=== PATIENT | male | born 1965 | race Caucasian/White ===

== ENCOUNTER 2024-07-26 03:52 | Emergency (ER) | payer BC, OTHER ==
[~2024-07-26] VITALS: Ht 182.9 cm; Wt 109.2 kg
[2024-07-26] MEDS ORDERED: ACET500T58 PO (04:19)
--- NOTE | 2024-07-26 04:21 | ED.PDOC ---
History of Present Illness HPI Comments 59 year old male presents to ER with complaints of flu-like symptoms x 2 days. Patient states he has been experiencing intermittent body aches, frontal sinus pain and on/off frontal headache x 2 days. He rates his current pain a 4/10. States he has been taking OTC Advil for his symptoms with slight relief and presents to ER ambulatory on arrival, alert and oriented x4, with steady gait, in no distress. Denies fever, cough, sore throat, congestion, runny nose, dizziness, n/v, numbness/tingling, sob, chest pain, abdominal pain, changes in urination/bm or any further symptoms/complaints Chief Complaint: Flu like Time Seen by MD: 04:02 Primary Care Provider: UNKNOWN Reviewed Notes: Nurses Notes, Medications, Allergies Information Source: Patient Past Medical History PAST MEDICAL HISTORY: Depression Surgical History: Denies all surgeries Family History Family History: Unknown Social History Smoker: Non-Smoker Alcohol: Occasionally Drugs: Marijuana Lives In: Home Constitutional: See HPI EENTM: See HPI Respiratory: No Symptoms Reported Cardiovascular: No Symptoms Reported Gastrointestinal: No Symptoms Reported Genitourinary: No Symptoms Reported Neurological: See HPI Musculoskeletal: No Symptoms Reported Integumentary: No Symptoms Reported Allergic/Immunocompromised: others (denies) Hematologic/Lymphatic: No Symptoms Reported Endocrine: No Symptoms Reported Psychiatric: No symptoms Reported Physical Exam General Appearance: No Apparent Distress, Obese HEENT: Normal ENT Inspection, PERRL/EOMI, Pharynx Normal, TMs Normal Neck: Full Range of Motion, Non-Tender, Normal Respiratory: Chest Non-Tender, Lungs Clear, No Accessory Muscle Use, No Respiratory Distress, Normal Breath Sounds Cardiovascular: No Murmur, No Gallop, Regular Rate/Rhythm Breast Exam: Deferred Gastrointestinal: Non Tender, No Pulsatile Mass, Soft Genitalia: Deferred Pelvic: Deferred Rectal: Deferred Extremities: Normal capillary refill, Normal range of motion Neurologic: Alert, peoplesoft fscm developer II-XII nml as Tested, No Motor Deficits, Normal Affect, Normal Mood, No Sensory Deficits Cerebellar Function: Normal Reflexes: Normal Skin: Dry, Normal Color, Warm Lymphatic: No Adenopathy Was a procedure done? Was a procedure done?: No Sedation Sedation?: No Fever Differential Dx Differential Diagnosis: Pneumonia, Other (influenza, covid-19) X-Ray, Labs, Meds, VS Vital Signs Date Time Temp Pulse Resp B/P (MAP) Pulse Ox O2 Delivery O2 Flow Rate FiO2 07/26/24 04:07 97.5 95 18 120/79 (93) 96 Lab Test 07/26/24 04:10 Range/Units Influenza Type A Antigen Negative Negative Influenza Type B Antigen Negative Negative SARS-CoV-2 Antigen (Rapid) Negative NEGATIVE Influenza A & B reviewed - negative Florecita reviewed - negative Patient in no distress during ER visit/prior to discharge Cannabis cessation discussed and advised Advised to drink plenty of fluids Advised to f/u with PCP in 1-2 days Patient verbalized understanding and agreeable with current plan of care Advised to return to ER immediately if symptoms worsen Time of 1ST Reevaluation: 03:44 Reevaluation 1ST: N/A Patient Education/Counseling: Diagnosis, Treatment, Prognosis, Need For Follow Up Family Education/Counseling: No Family Present Departure 1 Departure Time of Disposition: 04:12 Impression: Primary Impression: Acute viral sinusitis Disposition: 01 HOME / SELF CARE / HOMELESS Condition: Stable e-Prescriptions Acetaminophen (Acetaminophen) 500 Mg Tab 500 MG PO Q4HPRN, #30 TAB 0 Refills Prov: JESUS MANUEL FERRER 07/26/24 Discharged With: Self Critical Care Note Critical Care Time?: No Stability Stability form required: No Heart Score Heart Score: Heart Score Response (Comments) Value History N/A 0 EKG N/A 0 Age N/A 0 Risk Factors N/A 0 Troponin N/A 0 Total 0 JESUS MANUEL FERRER Jul 26, 2024 04:21
[2024-07-26 05:25] LABS: COVID19 ANTIGEN SOFIA FIA NEGATIVE (NEGATIVE); Rapid Influenza A Negative (Negative); Rapid Influenza B Negative (Negative)
[2024-07-26 05:38] VITALS: BP 140/75; PULSE 88; RESP 18; TEMP 98.5; O2SAT 98
== END 2024-07-26 05:52 | disposition home or self-care (01) ==
LOC: ER 03:52
DX: J01.90 Acute sinusitis, unspecified (principal); B97.89 Other viral agents as the cause of diseases classified elsewhere; F32.9 Major depressive disorder, single episode, unspecified; F15.90 Other stimulant use, unspecified, uncomplicated; Z20.822 Contact with and (suspected) exposure to COVID-19
CPT/HCPCS: 36415; 87426; 87804

== ENCOUNTER 2024-07-26 11:36 | Inpatient (IN) | payer BC ==
[~2024-07-26] VITALS: Ht 182.9 cm; Wt 108.3 kg
[~2024-07-26 11:36] MED LIST: ACET500T58 PO
--- NOTE | 2024-07-26 12:06 | ECG ---
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
--- NOTE | 2024-07-26 12:10 | ED.PDOC ---
History of Present Illness HPI Comments HPI: Poor Historian. 59 y.o male presents to the emergency department for evaluation of multiple vague symptoms. Symptoms started two days ago intermittent in nature. States having a fever and has been taking ibuprofen. He states having sinus and some nonspecific minimal headache. He states having nausea but no vomiting. He states having generalized weakness. He is not sure if he is having abdominal pain or not. He is also not sure if his urine is burning or not but he says I feel my urine but he specifically says it does not hurt or burn. Patient was seen and evaluated here last night and serology tests were done for COVID and influenza which were negative. Wellbutrin and Celexa for depression Vital signs: BP: 127/78 HR: 100 Temp: 97.5 F SPO2: 96% RA RR: 18 Patient denies any allergies Past medical history: depression and hyperlipidemia Past surgical history: unknown REVIEW OF SYSTEMS: CONSTITUTIONAL: Denies acute: fever, HEAD: Denies acute: photophobia Eyes: Denies acute: Double vision, vision loss, eye pain, eye discharge. EARS: Denies acute: tinnitus, hearing loss, ear discharge, ear pain, THROAT: Denies acute: sore throat, swelling, difficulty swallowing , pain with swallowing, change in voice. NECK: Denies acute: neck pain, neck swelling, stiff neck. HEART: Denies acute : chest pain, palpitations, LUNGS: Denies acute: SOB, wheezing, cough, hemoptysis ABDOMEN: Denies acute: Vomiting, diarrhea, melena , hematemesis, hematochezia SKIN: Denies acute: rash, redness, lesions, itchiness. EXTREMITIES: Denies acute: calf pain, numbness, tingling, weakness, denies pain in extremity. Denies acute: Low back pain. Neuro: Denies acute: focal neurological deficit, motor or sensory focal neurological deficit, tremors, seizure like activity, confusion, dizziness, change in mental status, loss of bowel or bladder function, cauda equina like symptoms. : Denies acute: hematuria, flank pain, increase in urinary frequency. PSYCH: Denies acute: hallucination, suicidal ideation, homicidal ideation. PHYSICAL EXAM: General: no acute distress, awake and alert. Head: normocephalic, atraumatic. Neck: supple, trachea is midline, no swelling. Throat: Normal phonation. Eyes:, no erythema, no purulent discharge, no proptosis, no icterus. Heart: regular tachycardic, no significant murmur appreciated. Lungs: no apparent respiratory distress, Able to speak in full sentences. No wheezing, no rhonchi, no crackles. No stridors Clear to auscultation bilaterally. Abdomen: non tender to palpation, non distended, soft, no guarding, no rebound, + bowel sounds. Neuro: Awake, Alert, oriented to name, self, situation, follows commands GCS=15. Speech is normal. Skin: no petechia, no purpura, no cyanosis, non-pale, not jaundice. Lower extremities: --no - Pitting edema no deformity, no focal swelling, no calf TTP. Makes eye contact. moves all four extremities. Face: no apparent facial droop. Ambulating in the ED independently. Chief Complaint: Abdominal Pain Time Seen by MD: 11:43 Primary Care Provider: UNKNOWN Allergies: Coded Allergies: NO KNOWN ALLERGIES (Unverified , 07/26/24) Home Meds Active Scripts Acetaminophen (Acetaminophen) 500 Mg Tab, 500 MG PO Q4HPRN, #30 TAB 0 Refills Prov:JESUS MANUEL FERRER 07/26/24 Information Source: Patient, Spouse Past Medical History PAST MEDICAL HISTORY: Depression Surgical History: Denies all surgeries Family History Family History: Unknown Social History Smoker: Non-Smoker Alcohol: Occasionally Drugs: Marijuana Lives In: Home Was a procedure done? Was a procedure done?: No Differential Dx Considerations may include: Includes but not limited to thyroid disease, encephalopathy, electrolyte abnormality, sepsis, infection, intracranial pathology, drug adverse effects, arrhythmia, kidney insufficiency, ACS, CVA, malignancy, anemia X-Ray, Labs, Meds, VS Vital Signs Date Time Temp Pulse Resp B/P (MAP) Pulse Ox O2 Delivery O2 Flow Rate FiO2 07/26/24 14:02 136/70 07/26/24 14:00 92 18 96 Room Air* 0 21 07/26/24 14:00 97.6 92 16 129/70 (89) 97 97.6 07/26/24 13:45 84 07/26/24 12:03 97.5 100 18 127/78 (94) 96 07/26/24 12:01 86 Lab Test 07/26/24 14:22 07/26/24 12:41 07/26/24 12:20 Range/Units Troponin I High Sensitivity 74 *H 77 *H </=54 ng/L White Blood Count 26.5 H 4.4-10.8 10^3/uL Red Blood Count 5.23 4.5-5.90 10^6/uL Hemoglobin 17.1 13.5-17.5 g/dL Hematocrit 50.2 41.0-53.0 % Mean Corpuscular Volume 96.0 80.0-100.0 fL Mean Corpuscular Hemoglobin 32.7 H 28.0-32.0 pg Mean Corpuscular Hemoglobin Concent 34.1 32.0-36.0 g/dL Red Cell Distribution Width 13.8 11.8-14.3 % Platelet Count 194 140-450 10^3/uL Mean Platelet Volume 9.3 6.9-10.8 fL Neutrophils (%) (Auto) 37.0-80.0 % Lymphocytes (%) (Auto) 10.0-50.0 % Monocytes (%) (Auto) 0.0-12.0 % Basophils (%) (Auto) 0.0-2.0 % Neutrophils # (Auto) 1.6-8.6 10 ^3/uL Lymphocytes # (Auto) 0.4-5.4 10 ^3/uL Monocytes # (Auto) 0-1.3 10 ^3/uL Differential Total Cells Counted 100.0 100 Neutrophils % (Manual) 67 37.0-80.0 Band Neutrophils % (Manual) 7 Lymphocytes % (Manual) 10 10.0-50.0 Monocytes % (Manual) 11 0-12 Eosinophils % (Manual) 5 0-7 Basophils % (Manual) 0 0.0-2.0 Metamyelocytes % (manual) 0 Myelocytes % (Manual) 0 Promyelocytes % (Manual) 0 Blast Cells % (Manual) 0 Reactive Lymphocytes 0 Platelet Estimate Adequate Sodium Level 137 136-145 mmol/L Potassium Level 3.7 3.5-5.1 mmol/L Chloride Level 101 98-107 mmol/L Carbon Dioxide Level 29 20-31 mmol/L Anion Gap 7 5-15 Blood Urea Nitrogen 16 9-23 mg/dL Creatinine 1.14 0.700-1.30 mg/dL Glomerular Filtration Rate Calc 73 >90 mL/min BUN/Creatinine Ratio 14.0 10.0-20.0 Serum Glucose 90 74-106 mg/dL Lactic Acid Level 1.5 0.4-2.0 mmol/L Calcium Level 9.7 8.7-10.4 mg/dL Magnesium Level 1.8 1.6-2.6 mg/dL Total Bilirubin 0.7 0.2-1.0 mg/dL Aspartate Amino Transferase (AST) 22 13-40 U/L Alanine Aminotransferase (ALT) 30 7-40 U/L Alkaline Phosphatase 56 46-116 U/L Creatine Kinase 481 H 46-171 U/L C-Reactive Protein High Sensitivity > 20.00 H <1.0 mg/dL Total Protein 7.1 5.7-8.2 g/dL Albumin 4.5 3.2-4.8 g/dL Lipase 26 12-53 U/L Urine Color Yellow Yellow Urine Clarity Clear Clear Urine pH 6.0 5.0-9.0 Urine Specific [place] 1.036 H 1.001-1.035 Urine Protein 1+ H Negative Urine Ketones Trace Negative Urine Blood 2+ H Negative /uL Urine Nitrite Negative Negative Urine Bilirubin Negative Negative Urine Urobilinogen 2 H Negative mg/dL Urine Leukocyte Esterase 2+ Negative /uL Urine RBC 40 0 - 3 /hpf Urine WBC 65 0 - 3 /hpf Urine Squamous Epithelial Cells Few <5 /hpf Urine Bacteria None seen None Seen /hpf Urine Glucose Normal Normal mg/dL Urine Opiates Screen Neg NEGATIVE Urine Fentanyl Screen Neg NEGATIVE Urine Barbiturates Screen Neg NEGATIVE Urine Phencyclidine Screen Neg NEGATIVE Urine Amphetamines Screen Neg NEGATIVE Urine Benzodiazepines Screen Neg NEGATIVE Urine Cocaine Screen Neg NEGATIVE Urine Cannabinoids Screen Pos NEGATIVE Current Medications Medications (Trade) Dose Ordered Sig/Ashley Route Start Time Stop Time Status Last Admin Aspirin 325 mg ONCE ONCE PO 07/26/24 13:30 07/26/24 13:37 DC 07/26/24 14:03 Sodium Chloride 1,000 ml @ 1,000 mls/hr Q1H ONCE IV 07/26/24 13:30 07/26/24 14:29 DC 07/26/24 14:02 Ceftriaxone Sodium 50 ml @ 100 mls/hr ONCE ONCE IV 07/26/24 13:45 07/26/24 14:14 DC 07/26/24 14:02 Sodium Chloride 1,000 ml @ 1,000 mls/hr Q1H ONCE IV 11/7/24 15:00 07/26/24 15:59 07/26/24 15:06 [place] [address] Ph: [phone] DIAGNOSTIC IMAGING Diagnostic Imaging Report : [id number] Signed PATIENT: JACKSON GO ACCT: [id number] UNIT: [id number] : 1965 LOC: ER ROOM / BED: / AGE / SEX: 59 / M ADM STATUS: REG ER SERVICE 1212 ORDERING PHYSICIAN: BARBARA PAIGE DO PROCEDURE(s): HWOCT - HEAD WITHOUT CONTRAST REASON: BYERS ORDER NUMBER(s): [id number], ACCESSION NUMBER(s): [id number] EXAM: CT HEAD WITHOUT CONTRAST INDICATION: BYERS TECHNIQUE: CT of the head without intravenous contrast. Coronal and sagittal reformatted images are submitted. Radiation Dose : 1. Head: CT Dose: CTDI volume is 54.05 mGy. Dose-length product is 866.58 mGy*cm The dose indicators for CT are the volume Computed Tomography (CT) Dose Index (CTDIvol) and the Dose Length Product (DLP), and are measured in units of mGy and mGy-cm, respectively. These indicators are not patient dose, but values generated from the CT scanner acquisition factors. The report includes radiation exposure data for exposures received during this examination. All CT scans at this medical facility are performed using dose modulation techniques as appropriate to a performed exam including the following: Automated exposure control was utilized; adjustment of the MA and/or KV according to patient size; and use of iterative reconstruction technique. COMPARISON: None FINDINGS: There is no evidence of acute intracranial hemorrhage, extra-axial collection, mass effect, midline shift, herniation or hydrocephalus. The ventricles, sulci and cisterns are age appropriate. The ayala-white differentiation is intact. The visualized paranasal sinuses and mastoid air cells are clear. No depressed calvarial fracture. The surrounding soft tissues are unremarkable. IMPRESSION: 1. No evidence of acute intracranial abnormality. ATED BY: CANDIDA DE LA CRUZ MD DICTATED DATE/TIME: 07/26/24 1241 SIGNED BY: CANDIDA DE LA CRUZ MD SIGNED DATE/TIME: 07/26/24 1241 CC: [facility] [id number] [place] [id number] Ph: [phone] DIAGNOSTIC IMAGING Diagnostic Imaging Report : [id number] Signed PATIENT: JACKSON GO ACCT: [id number] UNIT: [id number] : 1965 LOC: ER ROOM / BED: / AGE / SEX: 59 / M ADM STATUS: REG ER SERVICE 1212 ORDERING PHYSICIAN: BARBARA PAIGE DO PROCEDURE(s): ABPL - CT AB PEL WO CON-NO ORAL OR IV REASON: abd pain ORDER NUMBER(s): [id number], ACCESSION NUMBER(s): [id number] Exam: CT CT AB PEL WO CON-NO ORAL OR IV History: abd pain Comparison Study: None Technique: Multidetector spiral CT of the abdomen and pelvis was performed from lung bases to pubic symphysis. Imaging was performed without IV contrast. Axial, coronal and sagittal multiplanar reformats were obtained from the axial data set by the technologist. Radiation dose : Abdomen/Pelvis: CTDIvol 23 mGy, DLP 1369.33 mGy*cm. Findings: Evaluation of solid organs is limited due to lack of intravenous contrast use. Lung Bases: No acute or significant lung base finding. Normal heart size. No pleural or pericardial effusion. Liver: The liver is normal in size. No focal lesions. Gallbladder and biliary Tree: Unremarkable Spleen: Unremarkable Pancreas: The pancreas is grossly normal in appearance. Adrenal Glands: Unremarkable Kidneys: Kidneys are grossly normal without calculi or hydronephrosis. Bladder: Grossly unremarkable for degree of distention. Bowel: The stomach is grossly normal in appearance. Small bowel and colon are normal in caliber and distribution. Normal appendix is visualized in the right lower quadrant without findings of appendicitis. Ascites: Absent Lymphadenopathy: There are subcentimeter iliac chain lymph nodes noted bilaterally. Abdominal wall and Mesentery: Unremarkable. Vasculature: The visualized abdominal aorta is normal in size and caliber. Evaluation of abdominal and pelvic vessels is limited due to lack of intravenous contrast. Pelvic Organs: There is mild fatty stranding in the pelvis. Musculoskeletal: No aggressive focal bony lesions, acute fractures or dislocation. IMPRESSION: 1. No acute abdominal or pelvic findings. Mild fatty stranding in the pelvis is nonspecific. Subcentimeter iliac chain lymph nodes noted. Recommend clinical correlation and continued follow-up. Radiation optimization: All CT scans at this facility use at least one of these dose optimization techniques: Automated exposure control mA and/or kV adjustment per patient size (includes targeted exams where dose is matched to clinical indication) or iterative reconstruction. HS:Y ATED BY: BENEDICTO BROWN MD DICTATED DATE/TIME: 07/26/248 SIGNED BY: BENEDICTO BROWN MD SIGNED DATE/TIME: 07/26/241317 CC: [place] [address] Ph: [phone] DIAGNOSTIC IMAGING Diagnostic Imaging Report : [id number] Signed PATIENT: JACKSON GO ACCT: [id number] UNIT: [id number] : 1965 LOC: ER ROOM / BED: / AGE / SEX: 59 / M ADM STATUS: REG ER SERVICE 1204 ORDERING PHYSICIAN: BARBARA PAIGE DO PROCEDURE(s): CXRP - CHEST PORTABLE REASON: abd pain ORDER NUMBER(s): [id number], ACCESSION NUMBER(s): [id number] CLINICAL INFORMATION: 59 years old, Male; abdominal pain. TECHNIQUE: Single AP portable chest radiograph was obtained. COMPARISON: None FINDINGS: Lungs: Clear. Cardiac: Heart size is within normal limits. Pulmonary vasculature: Unremarkable. Mediastinum/cesar: Unremarkable. Bones: No acute osseous abnormality identified. Other: No other significant findings. IMPRESSION: No evidence of acute disease in the chest. ATED BY: BEN DE LEON DO DICTATED DATE/TIME: 07/26/24 1242 SIGNED BY: BEN DE LEON DO SIGNED DATE/TIME: 07/26/241241 CC: Time of 1ST Reevaluation: 15:06 Reevaluation 1ST: Improved Patient Education/Counseling: Diagnosis, Treatment Family Education/Counseling: Diagnosis, Treatment Comments Patient presented with the above HPI.---multiple complaints---workup was initiated. patient was found with the above mentioned diagnosis. Patient was given: Fluids, aspirin, nitroglycerin, antibiotics, sepsis protocol was initiated. Patient ED course and VS have been stabilized. Patient has been reassessed in the ED and remained in a stable condition. Pertinent incidental findings were discussed with the patient and/or family. Patient/family voices understanding and is agreeable with plan. Patient has been observed in the ED adequate length of time to insure improvement/stability. patient was admitted to the medicine team for further evaluation and treatment of their presentation. All the reports of any imaging studies that were ordered by myself were reviewed by myself. Departure 1 Departure Time of Disposition: 13:34 Impression: Primary Impression: NSTEMI (non-ST elevated myocardial infarction) Additional Impressions: Leukocytosis UTI (urinary tract infection) Sepsis Disposition: ADMITTED INPATIENT Admit to: Tele Condition: Guarded Discharged With: Self Critical Care Note Critical Care Time?: Yes (35 min-critical care time only) I personally scribed for BARBARA PAIGE DO ([email or web address]) on 07/26/24 at 12:10. Electronically submitted by Dedra Gutierrez ([facility]). I personally scribed for BARBARA PAIGE DO ([email or web address]) on 07/26/24 at 12:21. Electronically submitted by Dedra Gutierrez ([facility]). I personally scribed for BARBARA PAIGE DO ([email or web address]) on 07/26/24 at 12:22. Electronically submitted by Dedra Gutierrez ([facility]). I personally scribed for BARBARA PAIGE DO ([email or web address]) on 07/26/24 at 13:42. Electronically submitted by Dedra Gutierrez ([facility]). BARBARA PAIGE DO Jul 26, 2024 12:10
[2024-07-26 12:43] LABS: Urine Bacteria None Seen /hpf (None Seen)
--- NOTE | 2024-07-26 12:43 | DVH ---
EXAM: CT HEAD WITHOUT CONTRAST INDICATION: BYERS TECHNIQUE: CT of the head without intravenous contrast. Coronal and sagittal reformatted images are submitted. Radiation Dose : 1. Head: CT Dose: CTDI volume is 54.05 mGy. Dose-length product is 866.58 mGy*cm The dose indicators for CT are the volume Computed Tomography (CT) Dose Index (CTDIvol) and the Dose Length Product (DLP), and are measured in units of mGy and mGy-cm, respectively. These indicators are not patient dose, but values generated from the CT scanner acquisition factors. The report includes radiation exposure data for exposures received during this examination. All CT scans at this medical facility are performed using dose modulation techniques as appropriate to a performed exam including the following: Automated exposure control was utilized; adjustment of the MA and/or KV according to patient size; and use of iterative reconstruction technique. COMPARISON: None FINDINGS: There is no evidence of acute intracranial hemorrhage, extra-axial collection, mass effect, midline s hift, herniation or hydrocephalus. The ventricles, sulci and cisterns are age appropriate. The ayala-white differentiation is intact. The visualized paranasal sinuses and mastoid air cells are clear. No depressed calvarial fracture. The surrounding soft tissues are unremarkable. IMPRESSION: 1. No evidence of acute intracranial abnormality.
--- NOTE | 2024-07-26 12:45 | DVH ---
CLINICAL INFORMATION: 59 years old, Male; abdominal pain. TECHNIQUE: Single AP portable chest radiograph was obtained. COMPARISON: None FINDINGS: Lungs: Clear. Cardiac: Heart size is within normal limits. Pulmonary vasculature: Unremarkable. Mediastinum/cesar: Unremarkable. Bones: No acute osseous abnormality identified. Other: No other significant findings. IMPRESSION: No evidence of acute disease in the chest.
[2024-07-26 13:02] LABS: Urine Blood 2+ /uL (Negative); Urine Clarity Clear (Clear); Urine Color Yellow (Yellow); Urine Protein, UAD 1+ (Negative); Urine Specific Gravity 1.036 (1.001-1.035); Urine Urobilinogen 2 mg/dL (Negative); Urine WBC 65 /hpf (0 - 3)
[2024-07-26 13:02] LABS: Hematocrit 50.2 % (41.0-53.0); Hemoglobin 17.1 g/dL (13.5-17.5); Mean Corpuscular Hemoglobin 32.7 pg (28.0-32.0); Mean Corpuscular Hgb Conc. 34.1 g/dL (32.0-36.0); Platelet Count (auto) 194 10^3/uL (140-450); Red Blood Cells 5.23 10^6/uL (4.5-5.90); Red Cell Distribution Width 13.8 % (11.8-14.3); White Blood Cell 26.5 10^3/uL (4.4-10.8)
[2024-07-26 13:07] LABS: Basophils % (manual) 0 (0.0-2.0); Blast Cells 0; Metamyelocytes % 0; Myelocytes % 0; Promyelocytes % 0; Reactive Lymphocytes 0
[2024-07-26 13:21] LABS: Amphetamine Screen, Urine Neg (NEGATIVE)
--- NOTE | 2024-07-26 13:21 | DVH ---
Exam: CT CT AB PEL WO CON-NO ORAL OR IV History: abd pain Comparison Study: None Technique: Multidetector spiral CT of the abdomen and pelvis was performed from lung bases to pubic symphysis. Imaging was performed without IV contrast. Axial, coronal and sagittal multiplanar reform ats were obtained from the axial data set by the technologist. Radiation dose : Abdomen/Pelvis: CTDIvol 23 mGy, DLP 1369.33 mGy*cm. Findings: Evaluation of solid organs is limited due to lack of intravenous contrast use. Lung Bases: No acute or significant lung base finding. Normal heart size. No pleural or pericardial effusion. Liver: The liver is normal in size. No focal lesions. Gallbladder and biliary Tree: Unremarkable Spleen: Unremarkable Pancreas: The pancreas is grossly normal in appearance. Adrenal Glands: Unremarkable Kidneys: Kidneys are grossly normal without calculi or hydronephrosis. Bladder: Grossly unremarkable for degree of distention. Bowel: The stomach is grossly normal in appearance. Small bowel and colon are normal in caliber and d istribution. Normal appendix is visualized in the right lower quadrant without findings of appendici tis. Ascites: Absent Lymphadenopathy: There are subcentimeter iliac chain lymph nodes noted bilaterally. Abdominal wall and Mesentery: Unremarkable. Vasculature: The visualized abdominal aorta is normal in size and caliber. Evaluation of abdominal a nd pelvic vessels is limited due to lack of intravenous contrast. Pelvic Organs: There is mild fatty stranding in the pelvis. Musculoskeletal: No aggressive focal bony lesions, acute fractures or dislocation. IMPRESSION: 1. No acute abdominal or pelvic findings. Mild fatty stranding in the pelvis is nonspecific. Subcenti meter iliac chain lymph nodes noted. Recommend clinical correlation and continued follow-up. Radiation optimization: All CT scans at this facility use at least one of these dose optimization angelique hniques: Automated exposure control mA and/or kV adjustment per patient size (includes targeted exams where dose is matched to clinical indication) or iterative reconstruction. HS:Y
[2024-07-26 13:22] LABS: Barbiturate Scree,Urine Neg (NEGATIVE); Benzodiazephine Screen, Urine Neg (NEGATIVE); Cannabinoid Screen, Urine Pos (NEGATIVE); Cocaine Screen, Urine Neg (NEGATIVE); Opiate Scree,Urine Neg (NEGATIVE); Phencyclidine Screen, Urine Neg (NEGATIVE)
[2024-07-26 13:22] LABS: Alanine Aminotransferase 30 U/L (7-40); Albumin 4.5 g/dL (3.2-4.8); Alkaline Phosphatase 56 U/L (46-116); Anion Gap 7 (5-15); Aspartate Aminotransferase 22 U/L (13-40); Blood Urea Nitrogen 16 mg/dL (9-23); Calcium 9.7 mg/dL (8.7-10.4); Carbon Dioxide 29 mmol/L (20-31); Chloride 101 mmol/L (98-107); Glucose 90 mg/dL (74-106); Magnesium 1.8 mg/dL (1.6-2.6); Potassium 3.7 mmol/L (3.5-5.1); Sodium 137 mmol/L (136-145)
[2024-07-26 13:23] LABS: Bilirubin, Total 0.7 mg/dL (0.2-1.0); Total Protein 7.1 g/dL (5.7-8.2)
[2024-07-26 13:31] LABS: CRP High Sensitivity > 20.00 mg/dL (<1.0)
[2024-07-26 13:52] LABS: Lipase 26 U/L (12-53)
[2024-07-26 14:00] VITALS: PULSE 92; RESP 18; O2SAT 96
[2024-07-26] MEDS: cefTRIAXone 1GM/50ML D5W 50 ML IV ONE (14:02)
[2024-07-26] MEDS: NITROGLYCERIN 0.4 MG SL TAB SL ONE (14:02)
[2024-07-26] MEDS: SODIUM CHLORIDE 0.9% 1,000 ML IV ONE ×2 (14:02→15:06)
[2024-07-26] MEDS: ASPirin 325 MG TAB PO ONE (14:03)
[2024-07-26 14:05] LABS: Band Neutrophils % (manual) 7; Eosinophils % (manual) 5 (0-7); Lymphocytes % (manual) 10 (10.0-50.0); Monocytes % (manual) 11 (0-12)
[2024-07-26 14:06] LABS: Platelet Estimate Adequate
[2024-07-26] MEDS: HYDROcodone-ACET 5/325MG TAB PO ONE (18:41)
[2024-07-26 19:30] VITALS: PULSE 86; RESP 12; O2SAT 93
[2024-07-26] MEDS ORDERED: MORPHINE SULFATE INJ 2 MG/ml SYRG IV PRN (20:45)
[2024-07-26] MEDS ORDERED: ACETAMINOPHEN 325 MG TAB PO PRN (20:45)
[2024-07-26] MEDS ORDERED: ONDANSETRON HCL 4 MG/2 ML VIAL IV PRN (20:45)
[2024-07-26] MEDS ORDERED: NITROGLYCERIN 0.4 MG SL TAB SL PRN (20:45)
[2024-07-26] MEDS: SODIUM CHLOR 0.9% PF (SALINE LOCK) 10ML VIAL/SYR IV SCH (22:04)
[2024-07-26 22:37] VITALS: BP 153/79; PULSE 103; PULSE 85; RESP 18; TEMP 98.8; O2SAT 96
[2024-07-27] VITALS (9 sets, daily range): BP systolic 123–167; BP diastolic 61–96; PULSE 70–88; RESP 18–20; TEMP 97.8–98.6; O2SAT 93–98
--- NOTE | 2024-07-27 00:15 | DVHHPRES ---
History of Present Illness Resident Creating Document: ЕКАТЕРИНА KENDRICK RESIDENT History of Present Illness This is a 59-year-old male with past medical history of hypertension, hyperlipidemia, anxiety/ depression presented to the ED with a chief complaint of low-grade fever, sweating and chills for last 3 days prior to this admission. He Stated that he has sinusitis like feature with headache, low-grade fever, chills, shortness of breath and dry cough for last 2 days. The patient also mentioned dysuria and frequency, urgency and low stream of urine for last 1 week. He denies chest pain, dizziness, abdominal pain, nausea, vomiting, blood in urine, any change in bowel movement, sick contact or traveling. Past Medical History Hypertension, hyperlipidemia and depression Past Surgical History Tonsillectomy, surgery for rotator cuff injury of left shoulder Family History Significant history of Cancer and heart disease in the family Past Social History Smokes marijuana every day, nonalcoholic and never tried any other drugs Lives with family Review of Systems Constitutional: Yes: Chills, Malaise Eyes: No: Pain, Vision change, Conjunctivae inflammation, Eyelid inflammation, Other, Redness ENT: No: Ear pain, Ear discharge, Nose pain, Nose discharge, Nose congestion, Mouth pain, Mouth swelling, Throat pain, Throat swelling, Other Respiratory: Cough, Dry, Shortness of breath; No: SOB with excertion, Wheezing, Hemoptysis, Pleuritic Pain, Sputum, Wheezing, Other Cardiovascular: No: Chest Pain, Palpitations, Orthopnea, Paroxysmal Noc. Dyspnea, Edema, Lt Headedness, Other Gastrointestinal: No: Nausea, Vomiting, Abdominal Pain, Diarrhea, Constipation, Melena, Hematochezia, Other Genitourinary: Dysuria, Frequency; No Incontinence, No Hematuria, No Retention, No Other Musculoskeletal: No: other, neck pain, shoulder pain, arm pain, back pain, hand pain, leg pain, foot pain Skin: No: Rash, Lesions, Jaundice, Bruising, Other Neurological: No: Weakness, Numbness, Incoordination, Change in speech, Confusion, Seizures, Other Allergies: Coded Allergies: NO KNOWN ALLERGIES (Unverified , 07/26/24) Medications Current Medications Medications Dose Ordered Sig/Ashley Route Start Time Stop Time Status Last Admin Dose Admin Sodium Chloride 10 ml Q8HR IV 07/26/24 22:00 07/26/24 22:04 10 ML Acetaminophen 325 mg Q4HP PRN PO 07/26/24 20:45 Acetaminophen/ Hydrocodone Bitart 1 tab Q4HP PRN PO 07/26/24 20:45 Ondansetron HCl 4 mg Q4HP PRN IV 07/26/24 20:45 Nitroglycerin 0.4 mg Q5MINP PRN SL 07/26/24 20:45 Morphine Sulfate 2 mg Q30M PRN IV 07/26/24 20:45 Ceftriaxone Sodium 50 ml @ 100 mls/hr DAILY@09 IV 07/27/24 09:00 Exam Vital Signs Vital Signs Date Time Temp Pulse Resp B/P (MAP) Pulse Ox O2 Delivery O2 Flow Rate FiO2 07/26/24 22:37 Room Air* 0 21 07/26/24 22:37 98.8 85 18 153/79 (103) 96 98.8 Exam Physical examination: General Appearance: Alert, Oriented X3, Cooperative, No acute distress. HEENT: Atraumatic, PERRLA, EOMI, Mucous membrane moist/pink Respiratory: Clear to auscultation, Normal air movement Cardiovascular: Regular rate, Normal S1, Normal S2, No murmurs, no chest wall tenderness Abdominal: Normal bowel sounds, Soft, No tenderness, No hepatospenomegaly, No masses Extremities: No clubbing, No cyanosis, No edema, Normal pulses, No tenderness/swelling Skin: No rashes, No breakdown, No significant lesion Neuro: Normal gait, Normal speech, Strength at 5/5 X4 ext, Normal tone, Sensation intact, grossly intact cranial nerves Psych/Mental Status: Mental status NL, Mood NL Labs/Xrays Labs Test 07/26/24 16:36 07/26/24 12:41 07/26/24 12:20 Range/Units Troponin I High Sensitivity 61 *H </=54 ng/L White Blood Count 26.5 H 4.4-10.8 10^3/uL Red Blood Count 5.23 4.5-5.90 10^6/uL Hemoglobin 17.1 13.5-17.5 g/dL Hematocrit 50.2 41.0-53.0 % Mean Corpuscular Volume 96.0 80.0-100.0 fL Mean Corpuscular Hemoglobin 32.7 H 28.0-32.0 pg Mean Corpuscular Hemoglobin Concent 34.1 32.0-36.0 g/dL Red Cell Distribution Width 13.8 11.8-14.3 % Platelet Count 194 140-450 10^3/uL Mean Platelet Volume 9.3 6.9-10.8 fL Neutrophils (%) (Auto) 37.0-80.0 % Lymphocytes (%) (Auto) 10.0-50.0 % Monocytes (%) (Auto) 0.0-12.0 % Basophils (%) (Auto) 0.0-2.0 % Neutrophils # (Auto) 1.6-8.6 10 ^3/uL Lymphocytes # (Auto) 0.4-5.4 10 ^3/uL Monocytes # (Auto) 0-1.3 10 ^3/uL Differential Total Cells Counted 100.0 100 Neutrophils % (Manual) 67 37.0-80.0 Band Neutrophils % (Manual) 7 Lymphocytes % (Manual) 10 10.0-50.0 Monocytes % (Manual) 11 0-12 Eosinophils % (Manual) 5 0-7 Basophils % (Manual) 0 0.0-2.0 Metamyelocytes % (manual) 0 Myelocytes % (Manual) 0 Promyelocytes % (Manual) 0 Blast Cells % (Manual) 0 Reactive Lymphocytes 0 Platelet Estimate Adequate Sodium Level 137 136-145 mmol/L Potassium Level 3.7 3.5-5.1 mmol/L Chloride Level 101 98-107 mmol/L Carbon Dioxide Level 29 20-31 mmol/L Anion Gap 7 5-15 Blood Urea Nitrogen 16 9-23 mg/dL Creatinine 1.14 0.700-1.30 mg/dL Glomerular Filtration Rate Calc 73 >90 mL/min BUN/Creatinine Ratio 14.0 10.0-20.0 Serum Glucose 90 74-106 mg/dL Lactic Acid Level 1.5 0.4-2.0 mmol/L Calcium Level 9.7 8.7-10.4 mg/dL Magnesium Level 1.8 1.6-2.6 mg/dL Total Bilirubin 0.7 0.2-1.0 mg/dL Aspartate Amino Transferase (AST) 22 13-40 U/L Alanine Aminotransferase (ALT) 30 7-40 U/L Alkaline Phosphatase 56 46-116 U/L Creatine Kinase 481 H 46-171 U/L C-Reactive Protein High Sensitivity > 20.00 H <1.0 mg/dL Total Protein 7.1 5.7-8.2 g/dL Albumin 4.5 3.2-4.8 g/dL Lipase 26 12-53 U/L Urine Color Yellow Yellow Urine Clarity Clear Clear Urine pH 6.0 5.0-9.0 Urine Specific [place] 1.036 H 1.001-1.035 Urine Protein 1+ H Negative Urine Ketones Trace Negative Urine Blood 2+ H Negative /uL Urine Nitrite Negative Negative Urine Bilirubin Negative Negative Urine Urobilinogen 2 H Negative mg/dL Urine Leukocyte Esterase 2+ Negative /uL Urine RBC 40 0 - 3 /hpf Urine WBC 65 0 - 3 /hpf Urine Squamous Epithelial Cells Few <5 /hpf Urine Bacteria None seen None Seen /hpf Urine Glucose Normal Normal mg/dL Urine Opiates Screen Neg NEGATIVE Urine Fentanyl Screen Neg NEGATIVE Urine Barbiturates Screen Neg NEGATIVE Urine Phencyclidine Screen Neg NEGATIVE Urine Amphetamines Screen Neg NEGATIVE Urine Benzodiazepines Screen Neg NEGATIVE Urine Cocaine Screen Neg NEGATIVE Urine Cannabinoids Screen Pos NEGATIVE Assessment/Plan Assessment/Plan Assessment and plan: # Acute complicated cystitis - U/A is consistent with UTI - Elevated WBC count - Ordered urine bacterial culture - IV ceftriaxone 1 g daily # Possible rhabdomyolysis - CPK is elevated - Patient was given 2 L IV bolus normal saline - IV normal saline at 75 mL/hour - Monitor CPK level # NSTEMI type 2 secondary to above - Troponin trends are 77>64>71 - Ordered echo # History of depression/anxiety - Continue home meds # Hyperlipidemia - Atorvastatin 20 mg at HS # Hypokalemia - Replenished # Vitamin-D deficiency - Vitamin D 51293 units Q 7D. # PUD prophylaxis - Protonix 40 mg p.o. daily # DVT prophylaxis - Lovenox 40 mg sc daily Goal of care discussed with the patient for more than 20 minutes full code Plan of treatment discussed with Dr. Simon Plan discussed with: Patient, Other My Orders Orders - ЕКАТЕРИНА KENDRICK RESIDENT Procedure Category Date Status Time Admit ADMIT 07/26/24 Transmitted 20:38 Code Status CODE 07/26/24 Transmitted 20:38 Sodium Chloride Lock PHA 07/26/24 In Process (Saline Lock Ns) 22:00 Oxygen Per Hour RT 07/26/24 Transmitted 20:38 Acetaminophen Tablet PHA 07/26/24 In Process (Tylenol Tablet) 20:45 Hydrocodone-Acet PHA 11/7/24 In Process 5/325mg Tab ([place] 20:45 Ondansetron Hcl PHA 07/26/24 In Process (Zofran) 20:45 Complete Blood Count LAB 07/27/24 Logged 04:00 Comprehensive LAB 07/27/24 Logged Metabolic Panel 04:00 Echo 2d Mode Cardiac US 07/26/24 Logged DOP 20:38 Nitroglycerin PHA 07/26/24 In Process Sublingual (Ntrostat 20:45 Morphine Sulfate PHA 07/26/24 In Process Injection 20:45 Oxygen By Nasal RT 07/26/24 Transmitted Cannula 20:38 Stat Ekg For Chest KRISTINA 07/26/24 In Process Pain 20:38 Notify Md Of Changes KRISTINA 07/26/24 In Process From Base 20:38 Antique Repairer For KRISTINA 07/26/24 In Process 24 Hours 20:38 Emergency Dysrhythmia [facility] 07/26/24 In Process Protocol 20:38 Rhythm Strips Once KRISTINA 07/26/24 In Process Every Shift 20:38 Ceftriaxone 1gm/50ml PHA 07/27/24 In Process D5w (Rocephin) 09:00 Urine Bacterial JESSE 07/26/24 Uncollected Culture 22:47 Hemoglobin A1c LAB 07/26/24 Logged 22:47 Thyroid Stimulating LAB 07/26/24 Logged Hormone 22:47 Vitamin B12 LAB 07/26/24 Logged 22:47 Vitamin D, 25-Hydroxy LAB 07/26/24 Logged 22:47 Regular Diet DIET 07/27/24 Transmitted Breakfast NS PHA 07/27/24 Verified 00:15 Citalopram Tablet PHA 07/27/24 Verified (Celexa Tablet) 10:00 Bupropion Tablet PHA 07/27/24 Verified (Wellbutrin Tablet) 10:00 Atorvastatin (Lipitor) PHA 07/27/24 Verified 22:00 ЕКАТЕРИНА KENDRICK RESIDENT Jul 27, 2024 00:15
[2024-07-27] MEDS: HYDROcodone-ACET 5/325MG TAB PO PRN (03:00)
[2024-07-27 05:08] LABS: Basophils # (auto) 0 10 ^3/uL (0-0.2); Basophils % (auto) 0.1 % (0.0-2.0); Eosinophils % (auto) 4.5 % (0.0-7.0); Hematocrit 49.5 % (41.0-53.0); Hemoglobin 16.9 g/dL (13.5-17.5); Lymphocytes # (auto) 2.4 10 ^3/uL (0.4-5.4); Lymphocytes % (auto) 10.5 % (10.0-50.0); Mean Corpuscular Hemoglobin 32.8 pg (28.0-32.0); Mean Corpuscular Hgb Conc. 34.1 g/dL (32.0-36.0); Mean Corpuscular Volume 96.2 fL (80.0-100.0); Monocytes % (auto) 8.7 % (0.0-12.0); Neutrophils # (auto) 17.3 10 ^3/uL (1.6-8.6); Neutrophils % (auto) 76.2 % (37.0-80.0); Nucleated Red Blood Cells % 0.1 %; Platelet Count (auto) 175 10^3/uL (140-450); Red Blood Cells 5.15 10^6/uL (4.5-5.90); Red Cell Distribution Width 14.2 % (11.8-14.3); White Blood Cell 22.7 10^3/uL (4.4-10.8)
[2024-07-27 05:24] LABS: Alanine Aminotransferase 24 U/L (7-40); Albumin 4.2 g/dL (3.2-4.8); Alkaline Phosphatase 51 U/L (46-116); Anion Gap 7 (5-15); Aspartate Aminotransferase 21 U/L (13-40); BUN/Creatinine Ratio 11.1 (10.0-20.0); Bilirubin, Total 0.7 mg/dL (0.2-1.0); Blood Urea Nitrogen 10 mg/dL (9-23); Carbon Dioxide 23 mmol/L (20-31); Chloride 105 mmol/L (98-107); Creatine Kinase IFCC 367 U/L (46-171); Glucose 93 mg/dL (74-106); Potassium 3.3 mmol/L (3.5-5.1); Sodium 135 mmol/L (136-145); Total Protein 6.8 g/dL (5.7-8.2)
[2024-07-27] MEDS: PANTOPRAZOLE 40 MG TAB PO SCH (05:52)
[2024-07-27] MEDS: SODIUM CHLORIDE 0.9% 1,000 ML IV SCH (05:52)
[2024-07-27] MEDS: POTASSIUM CHL 20 Meq TABLET PO ONE (06:43)
[2024-07-27 07:23] LABS: Rapid Influenza A Negative (Negative); Rapid Influenza B Negative (Negative)
[2024-07-27 07:24] LABS: COVID19 ANTIGEN SOFIA FIA NEGATIVE (NEGATIVE)
[2024-07-27] MEDS: cefTRIAXone 1GM/50ML D5W 50 ML IV SCH (09:31)
[2024-07-27] MEDS: ENOXAPARIN SOD 40 MG/0.4 ML SYRINGE SC SCH (09:32)
[2024-07-27] MEDS: LOSARTAN POTASSIUM 25 MG TAB PO SCH (09:33)
[2024-07-27] MEDS: ASPirin 81 mg TAB PO SCH (09:33)
[2024-07-27] MEDS: CITALOPRAM HYDROBR 20 MG TAB PO SCH (09:33)
[2024-07-27] MEDS: buPROPion HCL 75 MG TAB PO SCH (09:33)
[2024-07-27] MEDS: ERGOCALCIFEROL 50,000 UNIT(1.25MG) CAP PO SCH ×2 (09:37→15:03)
--- NOTE | 2024-07-27 12:49 | DVHSR ---
APPROVED REPORT EXAM: Two-dimensional and M-mode echocardiogram with Doppler and color Doppler. Blood Pressure: 148/90 mmHg INDICATION Chest Pain RISK FACTORS Height: 70, Weight: 238 DIMENSIONS LVDd5.1 (3.8-5.7cm)LA (2D)4.2 (1.9-4.0cm)Aortic Root4.0 (2.0-3.7cm) LVDs3.3 (2.5-4.0cm)LA (MM) (1.9-4.0cm)Aortic Cusp Exc1.9 (1.5-2.0cm) EF (%) 64.0 (55-70%)Rt. Atrium4.4 (1.9-4.0cm)Asc. Aorta cm IVSd1.3 (0.7-1.1cm)RV (D) (1.8-2.4cm) PWd1.3 (0.7-1.1cm) Mitral Valve MitralMitral Stenosis E wave0.77m/sMV Mean GR.mmHg A wave0.62m/sMV Peak GR.mmHg E/A ratio1.22D MVAcm2 DECEL [id number] 1/2 Qojh80dr IVRTmsDop MVA3.43cm2 Aortic Valve Aortic ValveAortic Stenosis V11.24m/Sergio Mean GR.4mmHg V21.29m/Sergio Peak GR.7mmHg LVOT Diameter2.1 (1.8-2.4cm)Doppler AVA3.33cm2 Pulmonic Valve V20.86m/s Conclusion Normal left ventricular size and dimension. Normal left ventricular systolic function estimated ejec tion fraction 55%. There is a grade 2 diastolic dysfunction. Normal right ventricular size and dimension. Normal right ventricular systolic function. Normal biatrial size and dimension. Normal aortic valve structure and function. Normal mitral valve structure and function. Normal tricuspid valve structure function. The pulmonary valve is grossly normal. No pericardial effusion.
[2024-07-27] MEDS: amLODIPine BESYLATE 5 MG TAB PO ONE (15:03)
--- NOTE | 2024-07-27 17:25 | DVHPNRES ---
Progress Note Date Seen: Jul 27, 2024 Resident Creating Document: LEXIE SEGURA RESIDENT Medical Necessity Reason Pt with a Central, PICC or Fol: No Subjective Review of Systems Patient is a 59-year-old male with past medical history of hypertension, dyslipidemia, asthma, depression, who came in due to fever, sweats and chills that have been ongoing for the past 3 days. According to the patient he has been having night sweats for the past 1 year, however, for the past 3 days his night sweats have been worse and followed by chills where he wakes up to a wet pillow. Patient also notes that he has been feeling dizzy and feels like he has not infection, lack of appetite for the past 3 days. Denies having similar symptoms in the past. Patient also notes having hesitancy, dysuria and difficulty urinating. Patient notes that he strains to urinate and is only able to pass the urine freely after a prostate massage. UA showed 1+ proteinuria, 2+ blood, 2+ leukocyte esterase, 65 WBCs. Lactic acid was 1.5 [address] WBCs were 22.7. CT showed subcentimeter iliac chain lymphadenopathy. Patient was started on ceftriaxone. Past surgical history: Left shoulder/rotator cuff surgery, tonsillectomy Home medications: Acetaminophen, atorvastatin, citalopram, bupropion, Protonix, aspirin, sildenafil Past Hospitalization: Denies Social & Personal history: Patient lives with his and is retired. Denies using tobacco, alcohol. Uses marijuana daily and heavily for the past 10 years. Denies using any other drugs. Allergies: Denies Patient seen and examined at bedside. Patient is alert and oriented to time, place person and responding to all questions. General: Reports feeling fatigue, fever and chills Eyes: No Pain, No Vision change, No Conjunctivae inflammation, No Eyelid inflammation, No Other, No Redness ENT: No Ear pain, No Ear discharge, No Nose pain, No Nose discharge, No Nose congestion, No Mouth pain, No Mouth swelling, No Throat pain, No Throat swelling, No Other Cardiovascular: No Chest Pain, No Palpitations, No Orthopnea, No Paroxysmal No Dyspnea, No Edema, No Lt Headedness, No Other Respiratory: No Cough, No Dry, No Shortness of breath, SOB with exertion, No Wheezing, No Hemoptysis, No Pleuritic Pain, No Sputum, No Other Gastrointestinal: No Nausea, No Vomiting, Abdominal Pain, No Diarrhea, No Constipation, No Melena, No Hematochezia, No Other Genitourinary: Dysuria, Frequency, No Incontinence, No Hematuria, No Retention, No Other Musculoskeletal: No other, No neck pain, No shoulder pain, No arm pain, No back pain, No hand pain, No leg pain, No foot pain Skin: No Rash, No Lesions, No Jaundice, No Bruising, No Other Objective vital signs Vital Sign Date Time Temp Pulse Resp B/P (MAP) Pulse Ox O2 Delivery O2 Flow Rate FiO2 07/27/24 16:37 98.6 76 18 159/61 (93) 97 98.6 07/27/24 08:00 Room Air* 0 21 Total Intake and Output 07/26/24 07/26/24 07/27/24 15:00 23:00 07:00 Intake Total 150 ml 525 ml Balance 150 ml 525 ml medications Current Medications Medications Dose Ordered Sig/Ashley Route Start Time Stop Time Status Last Admin Dose Admin Sodium Chloride 10 ml Q8HR IV 07/26/24 22:00 07/27/24 15:03 10 ML Acetaminophen 325 mg Q4HP PRN PO 07/26/24 20:45 Acetaminophen/ Hydrocodone Bitart 1 tab Q4HP PRN PO 07/26/24 20:45 07/27/24 03:00 1 TAB Ondansetron HCl 4 mg Q4HP PRN IV 07/26/24 20:45 Nitroglycerin 0.4 mg Q5MINP PRN SL 07/26/24 20:45 Ceftriaxone Sodium 50 ml @ 100 mls/hr DAILY@09 IV 07/27/24 09:00 07/27/24 09:31 100 MLS/HR Sodium Chloride 1,000 ml @ 75 mls/hr [id number] IV 07/27/24 00:15 07/27/24 05:52 75 MLS/HR Citalopram Hydrobromide 20 mg DAILY PO 07/27/24 10:00 07/27/24 09:33 20 MG Bupropion HCl 150 mg DAILY PO 07/27/24 10:00 07/27/24 09:33 150 MG Losartan Potassium 25 mg DAILY PO 07/27/24 10:00 07/27/24 09:33 25 MG Enoxaparin Sodium 40 mg DAILY SC 07/27/24 10:00 07/27/24 09:32 40 MG Pantoprazole Sodium 40 mg DAILY@0600 PO 07/27/24 06:00 07/27/24 05:52 40 MG Atorvastatin Calcium 40 mg HS PO 07/27/24 22:00 Aspirin 81 mg DAILY PO 07/27/24 10:00 07/27/24 09:33 81 MG Ergocalciferol 50,000 unit Q7D PO 07/27/24 08:45 07/27/24 15:03 50,000 UNIT Amlodipine Besylate 5 mg DAILY PO 07/28/24 10:00 Examination General Appearance: Cooperative. Well developed. Well nourished. NAD Head Exam: Normal inspection Neck Exam: Normal inspection. Non-tender. Normal alignment Pulmonary/Respiratory: Chest non-tender. Clear bilateral breath sounds, no crackles, no wheezing. Cardiovascular/Chest: Regular rate and rhythm. No murmurs. No JVD. Peripheral Pulses: 2+ Radial (R). 2+ Radial (L). 2+ Pedal (R). 2+ Pedal (L) Abdominal Exam: Normal bowel sounds. Soft. normal abdomen, no visible veins, Nontender. No hepatospenomegaly. No masses Ankle Exam: Negative ankle edema Lower extremities: Negative lower extremity edema Neuro/Mental Status: A&O x4. Coherent. Thoughts/Psych: Normal thought pattern. Appropriate mood and affect. Good judgement and insight Skin Exam: Normal inspection. Normal color. Warm. Dry laboratory and microbiology Laboratory Tests 07/27/24 04:15 Test 07/27/24 04:15 Range/Units Serum Glucose 93 74-106 mg/dL Labs and/or images reviewed: Labs reviewed by me, Image(s) reviewed by me Problem List/Assessment/Plan Problem List/Assessment/Plan Acute prostatitis versus acute complicated UTI NSTEMI type 2 likely due to above Ruled out rhabdomyolysis - CT abdomen pelvis:No acute abdominal or pelvic findings. Mild fatty stranding in the pelvis is nonspecific. Subcentimeter iliac chain lymph nodes noted. Recommend clinical correlation and continued follow-up. - IV ceftriaxone - IV NS at 75 cc/hour Depression - citalopram 20 mg p.o. daily - bupropion 150 mg p.o. daily Hypertension Dyslipidemia - aspirin, atorvastatin - amlodipine 5 mg - losartan 25 mg Hypokalemia Vitamin-D deficiency - repleted PUD prophylaxis: protonix 40mg DVT prophylaxis: Levonox 40mg Goals of care: Full code, discussed for >16 minutes on 07/27/24 Plan discussed with patient Plan discussed with Dr. Del [place] Plan discussed with: Patient, Spouse, Other (RN) My Orders My Orders Orders - LEXIE SEGURA Procedure Category Date Status Time Amlodipine Tablet PHA 07/28/24 In Process (Norvasc Tablet) 10:00 Psa Total+% Free LAB 07/27/24 In Process 11:57 Date of Service: Jul 27, 2024 Billing Provider: ROBERTO DEL RIO MD Common Visit Codes: [id number] INP/OBS CARE(HIGH) Coding Comment Comment I saw and evaluated the patient. I reviewed the residents note and agree with findings and plan as documented in the residents note. Complicated UTI versus acute cystitis, we will obtain PSA, plus-minus transrectal ultrasound if needed. Patient also had some concerning the symptoms, also lymphadenopathy subcentimeter which most likely is reactive, we will look at smear, send QuantiFERON, and possibly discharge with Urology follow up as outpatient LEXIE SEGURA Jul 27, 2024 17:25 ROBERTO DEL RIO MD Jul 27, 2024 20:45
[2024-07-27] MEDS: ATORVASTATIN 20 MG TAB PO SCH (21:32)
[2024-07-27] MEDS ORDERED: ATORVASTATIN 20 MG TAB PO SCH (22:00)
[2024-07-28 05:00] VITALS: BP 136/73; PULSE 68; RESP 19; TEMP 98.3; O2SAT 94
[2024-07-28 06:18] LABS: Basophils # (auto) 0.2 10 ^3/uL (0-0.2); Eosinophils % (auto) 6.5 % (0.0-7.0); Hematocrit 47.8 % (41.0-53.0); Lymphocytes % (auto) 12.7 % (10.0-50.0); Mean Corpuscular Hemoglobin 32.2 pg (28.0-32.0); Mean Corpuscular Hgb Conc. 33.4 g/dL (32.0-36.0); Mean Corpuscular Volume 96.6 fL (80.0-100.0); Monocytes # (auto) 0.8 10 ^3/uL (0-1.3); Monocytes % (auto) 4.9 % (0.0-12.0); Neutrophils % (auto) 74.9 % (37.0-80.0); Platelet Count (auto) 196 10^3/uL (140-450); Red Blood Cells 4.95 10^6/uL (4.5-5.90); Red Cell Distribution Width 14.5 % (11.8-14.3)
[2024-07-28 06:31] LABS: Calcium 9.4 mg/dL (8.7-10.4); Chloride 108 mmol/L (98-107); Potassium 4.1 mmol/L (3.5-5.1); Sodium 138 mmol/L (136-145)
[2024-07-28 06:32] LABS: Anion Gap 7 (5-15); Carbon Dioxide 23 mmol/L (20-31)
[2024-07-28 06:38] LABS: BUN/Creatinine Ratio 11.5 (10.0-20.0); Blood Urea Nitrogen 10 mg/dL (9-23); Glucose 94 mg/dL (74-106)
[2024-07-28 08:00] VITALS: PULSE 72
[2024-07-28 08:06] LABS: PSA Free 0.88 ng/mL; Prostate Specific Antigen 15.3 ng/mL (0.0-4.0)
[2024-07-28 08:35] VITALS: BP 146/79; PULSE 70; RESP 18; TEMP 98.1; O2SAT 97
[2024-07-28] MEDS: cefTRIAXone 1GM/50ML D5W 50 ML IV SCH (09:07)
[2024-07-28] MEDS: amLODIPine BESYLATE 5 MG TAB PO SCH (09:08)
[2024-07-28] MEDS ORDERED: levoFLOXacin 500MG 100 ML IV SCH (10:00)
[2024-07-28] MEDS ORDERED: ALUMSUS16 PO (11:39)
[2024-07-28] MEDS ORDERED: CIPR500T4 PO (11:39)
[2024-07-28 12:08] VITALS: BP 146/79; TEMP 36.7
--- NOTE | 2024-07-28 12:35 | DVHDSRES ---
Discharge Summary Date of Admission Resident Creating Document: LEXIE SEGURA RESIDENT Jul 26, 2024 at 20:38 Date of Discharge: Jul 28, 2024 Admitting Diagnosis Fever, sweats, chills Labs/Diagnostic Data: Laboratory Results Test 07/28/24 05:02 07/27/24 05:20 07/27/24 04:15 07/26/24 16:36 White Blood Count 16.0 10^3/uL (4.4-10.8) Red Blood Count 4.95 10^6/uL (4.5-5.90) Hemoglobin 16.0 g/dL (13.5-17.5) Hematocrit 47.8 % (41.0-53.0) Mean Corpuscular Volume 96.6 fL (80.0-100.0) Mean Corpuscular Hemoglobin 32.2 pg (28.0-32.0) Mean Corpuscular Hemoglobin Concent 33.4 g/dL (32.0-36.0) Red Cell Distribution Width 14.5 % (11.8-14.3) Platelet Count 196 10^3/uL (140-450) Mean Platelet Volume 9.8 fL (6.9-10.8) Neutrophils (%) (Auto) 74.9 % (37.0-80.0) Lymphocytes (%) (Auto) 12.7 % (10.0-50.0) Monocytes (%) (Auto) 4.9 % (0.0-12.0) Eosinophils (%) (Auto) 6.5 % (0.0-7.0) Basophils (%) (Auto) 1.0 % (0.0-2.0) Neutrophils # (Auto) 12.0 10 ^3/uL (1.6-8.6) Lymphocytes # (Auto) 2.0 10 ^3/uL (0.4-5.4) Monocytes # (Auto) 0.8 10 ^3/uL (0-1.3) Eosinophils # (Auto) 1.0 10 ^3/uL (0-0.8) Basophils # (Auto) 0.2 10 ^3/uL (0-0.2) Nucleated Red Blood Cells 0.0 % Sodium Level 138 mmol/L (136-145) Potassium Level 4.1 mmol/L (3.5-5.1) Chloride Level 108 mmol/L (98-107) Carbon Dioxide Level 23 mmol/L (20-31) Anion Gap 7 (5-15) Blood Urea Nitrogen 10 mg/dL (9-23) Creatinine 0.87 mg/dL (0.700-1.30) Glomerular Filtration Rate Calc 98 mL/min (>90) BUN/Creatinine Ratio 11.5 (10.0-20.0) Serum Glucose 94 mg/dL (74-106) Calcium Level 9.4 mg/dL (8.7-10.4) Influenza Type A Antigen Negative (Negative) Influenza Type B Antigen Negative (Negative) SARS-CoV-2 Antigen (Rapid) Negative (NEGATIVE) Hemoglobin A1c 5.7 % A1C (<5.7) Total Bilirubin 0.7 mg/dL (0.2-1.0) Aspartate Amino Transferase (AST) 21 U/L (13-40) Alanine Aminotransferase (ALT) 24 U/L (7-40) Alkaline Phosphatase 51 U/L (46-116) Creatine Kinase 367 U/L (46-171) Total Protein 6.8 g/dL (5.7-8.2) Albumin 4.2 g/dL (3.2-4.8) Free Prostate Specific Antigen 0.88 ng/mL (N/A) Percent Free Prostate Specific Ag 5.8 % (.) Prostate Specific Antigen Total 15.3 ng/mL (0.0-4.0) Vitamin B12 Level 363 pg/mL (211-911) Vitamin D 25-Hydroxy 26.4 ng/mL (30.0-100) Thyroid Stimulating Hormone (TSH) 1.66 uIU/mL (0.55-4.78) Troponin I High Sensitivity 61 ng/L (</=54) Test 07/26/24 12:41 07/26/24 12:20 Differential Total Cells Counted 100.0 (100) Neutrophils % (Manual) 67 (37.0-80.0) Band Neutrophils % (Manual) 7 Lymphocytes % (Manual) 10 (10.0-50.0) Monocytes % (Manual) 11 (0-12) Eosinophils % (Manual) 5 (0-7) Basophils % (Manual) 0 (0.0-2.0) Metamyelocytes % (manual) 0 Myelocytes % (Manual) 0 Promyelocytes % (Manual) 0 Blast Cells % (Manual) 0 Reactive Lymphocytes 0 Platelet Estimate Adequate Lactic Acid Level 1.5 mmol/L (0.4-2.0) Magnesium Level 1.8 mg/dL (1.6-2.6) C-Reactive Protein High Sensitivity > 20.00 mg/dL (<1.0) Lipase 26 U/L (12-53) Urine Color Yellow (Yellow) Urine Clarity Clear (Clear) Urine pH 6.0 (5.0-9.0) Urine Specific [place] 1.036 (1.001-1.035) Urine Protein 1+ (Negative) Urine Ketones Trace (Negative) Urine Blood 2+ /uL (Negative) Urine Nitrite Negative (Negative) Urine Bilirubin Negative (Negative) Urine Urobilinogen 2 mg/dL (Negative) Urine Leukocyte Esterase 2+ /uL (Negative) Urine RBC 40 /hpf (0 - 3) Urine WBC 65 /hpf (0 - 3) Urine Squamous Epithelial Cells Few /hpf (<5) Urine Bacteria None seen /hpf (None Seen) Urine Glucose Normal mg/dL (Normal) Urine Opiates Screen Neg (NEGATIVE) Urine Fentanyl Screen Neg (NEGATIVE) Urine Barbiturates Screen Neg (NEGATIVE) Urine Phencyclidine Screen Neg (NEGATIVE) Urine Amphetamines Screen Neg (NEGATIVE) Urine Benzodiazepines Screen Neg (NEGATIVE) Urine Cocaine Screen Neg (NEGATIVE) Urine Cannabinoids Screen Pos (NEGATIVE) Other Laboratory Tests 07/28/24 05:02 Brief Hx & Hospital Course: Patient is a 59-year-old male with past medical history of hypertension, dyslipidemia, asthma, depression, who came in due to fever, sweats and chills that have been ongoing for the past 3 days. According to the patient he has been having night sweats for the past 1 year, however, for the past 3 days his night sweats have been worse and followed by chills where he wakes up to a wet pillow. Patient also notes that he has been feeling dizzy and feels like he has not infection, lack of appetite for the past 3 days. Denies having similar symptoms in the past. Patient also notes having hesitancy, dysuria and difficulty urinating. Patient notes that he strains to urinate and is only able to pass the urine freely after a prostate massage. UA showed 1+ proteinuria, 2+ blood, 2+ leukocyte esterase, 65 WBCs. Lactic acid was 1.5 and WBCs were 22.7. CT showed subcentimeter iliac chain lymphadenopathy. Patient was started on ceftriaxone. Hospital course: CT abdomen pelvis showed no acute abdominopelvic findings. Mild fat stranding in the pelvis is nonspecific. Subcentimeter iliac chain lymph nodes noted. Patient was started on IV NS at 75 cc/hour along with IV ceftriaxone. Home medications citalopram, bupropion, aspirin, atorvastatin and losartan were continued. Amlodipine 5 mg was also used to control patient's blood pressure. Hypokalemia and vitamin-D deficiencies were accordingly repleted. On the day of discharge, patient was noted to have a downtrending WBCs along with improvement in his symptoms and the ability to pass urine. Patient appeared well and had stable vital signs, detailed discussion was held with the patient along with the at bedside were all questions were answered and all concerns addressed. Patient was discharged home with ciprofloxacin 500 mg b.i.d. for 2 weeks along with Maalox as needed for indigestion. Patient was instructed to follow up with Urology in the outpatient clinic to further evaluate elevated PSA, patient demonstrated understanding. He was also instructed to follow up with his PCP. His hospital course was uncomplicated. General Appearance: Cooperative. Well developed. Well nourished. NAD Head Exam: Normal inspection Neck Exam: Normal inspection. Non-tender. Normal alignment Pulmonary/Respiratory: Chest non-tender. Clear bilateral breath sounds, no crackles, no wheezing. Cardiovascular/Chest: Regular rate and rhythm. No murmurs. No JVD. Peripheral Pulses: 2+ Radial (R). 2+ Radial (L). 2+ Pedal (R). 2+ Pedal (L) Abdominal Exam: Normal bowel sounds. Soft. normal abdomen, no visible veins, Nontender. No hepatospenomegaly. No masses Ankle Exam: Negative ankle edema Lower extremities: Negative lower extremity edema Neuro/Mental Status: A&O x4. Coherent. Thoughts/Psych: Normal thought pattern. Appropriate mood and affect. Good judgement and insight Skin Exam: Normal inspection. Normal color. Warm. Dry Condition at Discharge: Good Final Diagnosis/Problems List Acute prostatitis versus acute complicated UTI NSTEMI type 2 likely due to above Ruled out rhabdomyolysis Depression Hypertension Dyslipidemia Hypokalemia Vitamin-D deficiency Discharge Disposition: Home Discharge Instruct/Medications Diet: Cardiac 2g Na,low cholest Activity: No Restrictions, As Tolerated Follow Up/Referral: Please follow up with Urology in the outpatient clinic within 1 week Please follow up with PCP in 1-2 weeks Please scheduled for discharge clinic Medications: Ciprofloxacin 500 mg twice a day for 14 days Maalox as needed for indigestion Discharge Statement: "Patient was advised to return to the ER or call 911 if any headaches, dizziness, shortness of breath, chest pain, abdominal pain, bleeding, fevers, or worsening of medical condition. Patient was counseled about treatment plan, medications, possible side effects, patientverbalized understanding. All questions were answered to the best of my ability. This discharge took greater then 30 minutes in planning, reviewing documentation, counseling the patient, and discussing with other team members." ASSESSMENT ASSESSMENT Assessment Acute prostatitis versus acute complicated UTI NSTEMI type 2 likely due to above Ruled out rhabdomyolysis Depression Hypertension Dyslipidemia Hypokalemia Vitamin-D deficiency Date of Service: Jul 28, 2024 Billing Provider: ROBERTO DEL RIO MD Common Visit Codes: 13687-IUM/OBS DISCH DAY >30min Coding Comment Comment I saw and evaluated the patient. I reviewed the residents note and agree with findings and plan as documented in the residents note. LEXIE SEGURA RESIDENT Jul 28, 2024 12:35 ROBERTO DEL RIO MD Jul 28, 2024 22:44
--- NOTE | 2024-07-30 14:57 | ECG ---
[facility] Test Date: 2024-07-26 Test Time: 13:45:23 Pat Name: JACKSON GO Department: ED Room: [facility]0T A Gender: M Folder Operator: KATHE : 1965 Requested By: BARBARA PAIGE Order Number: [id number] Reading MD: Measurements Intervals [place] Rate: 84 P: 61 SD: 153 QRS: 37 QRSD: 95 T: -10 QT: 340 QTc: 402 Interpretive Statements Sinus rhythm Borderline repolarization abnormality Please click the below link to view image of tracing.
== END 2024-07-28 12:50 | disposition home or self-care (01) | DRG 871 ==
LOC: ER 11:56 → TELE 20:38 → TELE-WESTW 22:37
PROVIDERS: ADMIT Student in an Organized Health Care Education/Training Program; ATTEND Emergency Medicine
DX: A41.9 Sepsis, unspecified organism (principal); I21.A1 Myocardial infarction type 2; N30.00 Acute cystitis without hematuria; N41.0 Acute prostatitis; F32.A Depression, unspecified; E78.5 Hyperlipidemia, unspecified; I10 Essential (primary) hypertension; E87.6 Hypokalemia; E55.9 Vitamin D deficiency, unspecified; F41.9 Anxiety disorder, unspecified; R59.1 Generalized enlarged lymph nodes; Z20.822 Contact with and (suspected) exposure to COVID-19; J45.909 Unspecified asthma, uncomplicated; F12.90 Cannabis use, unspecified, uncomplicated; Z82.49 Family history of ischemic heart disease and other diseases of the circulatory system; Z80.8 Family history of malignant neoplasm of other organs or systems
CPT/HCPCS: 36415; 70450; 71045; 74176; 80048; 80053; 80307; 81001; 82306; 82550; 82607; 83036; 83605; 83690; 83735; 84154; 84443; 84484; 85007; 85025; 85027; 86141; 87086; 87088; 87186; 87426; 87804; 93005; 93306; 99291; G0378

== ENCOUNTER 2025-08-25 06:32 | Inpatient (IN) | payer BC ==
[~2025-08-25] VITALS: Ht 182.9 cm; Wt 101.0 kg
[~2025-08-25 06:32] MED LIST changes: -ACET500T58 PO; +ALUMSUS16 PO; +CIPR500T4 PO
--- NOTE | 2025-08-25 06:37 | ED.PDOC ---
GI ASSESSMENT HPI Comments 60 y/o M, presents to the ED for CC of abdominal pain. Patient states, he has been experiencing worsening epigastric abdominal pain x2days. Patient reports further, associated symptoms of nausea and diarrhea. Patient relays, pain to worsen with repositioning and rates it 7/10 on the pain scale. Patient denies melena, fever, chills, weakness, or fatigue. No other symptoms or modifying factors are present at this time. Chief Complaint: Abdominal Pain Time Seen by MD: 06:40 Primary Care Provider: UNKNOWN Reviewed Notes: Nurses Notes, Medications, Allergies Allergies: Coded Allergies: NO KNOWN ALLERGIES (Unverified , 07/26/24) Home Meds Active Scripts Alum & Mag Hydrox-Simethicone (Maalox Multi Symptom Maxi) Symp Max Annika, 1 MAX PO PRN PRN for 30 Days, #100 ML Prov:LEXIE SEGURA RESIDENT 07/28/24 Ciprofloxacin Hcl (Ciprofloxacin Hcl) 500 Mg Tab, 1 TAB PO BID for 14 Days, #28 TAB Prov:LEXIE SEGURA RESIDENT 07/28/24 Information Source: Patient Mode of Arrival: Ambulatory Timing: Days Duration: Since onset Prehospital treatment: None Vomitus: None Stool: Watery Severity: Moderate Recent: None Recent Hx of: None Pain Location: Epigastric Modifying Factors: Nothing Associated sign and symptoms: Nausea, Diarrhea, Abdominal Pain Past Medical History PAST MEDICAL HISTORY: Depression Surgical History: Denies all surgeries Family History Family History: Unknown Social History Smoker: Non-Smoker Alcohol: Occasionally Drugs: Marijuana Lives In: Home Constitutional: denies: chills, diaphoresis, fatigue, fever, malaise, sweats, weakness, others EENTM: denies: blurred vision, double vision, ear bleeding, ear discharge, ear drainage, ear pain, ear ringing, eye pain, eye redness, hearing loss, mouth pain, mouth swelling, nasal discharge, nose bleeding, nose congestion, nose pain, photophobia, tearing, throat pain, throat swelling, voice changes, others Respiratory: denies: cough, hemoptysis, orthopnea, SOB at rest, shortness of breath, SOB with excertion, stridor, wheezing, others Cardiovascular: denies: chest pain, dizzy spells, diaphoresis, Dyspnea on exertion, edema, irregular heart beat, left arm pain, lightheadedness, palpitations, PND, syncope, others Gastrointestinal: reports: abdominal pain, diarrhea, nausea; denies: abdomen distended, blood streaked bowels, constipated, dysphagia, difficulty swallowing, hematemesis, melena, poor appetite, poor fluid intake, rectal bleeding, rectal pain, vomiting, others Genitourinary: denies: burning, dysuria, flank pain, frequency, hematuria, incontinence, penile discharge, penile sore, pain, testicle pain, testicle swe lling, urgency, others Neurological: denies: dizziness, fainting, headache, left sided numbness, left sided weakness, numbness, paresthesia, pre-existing deficit, right sided numbness, right sided weakness, seizure, speech problems, tingling, tremors, weakness, others Musculoskeletal: denies: back pain, gout, joint pain, joint swelling, muscle pain, muscle stiffness, neck pain, others Integumetry: denies: bruises, change in color, change in hair/nails, dryness, laceration, lesions, lumps, rash, wounds, others Allergic/Immunocompromised: denies: Difficulty Healing, Frequent Infections, Hives, Itching, others Hematologic/Lymphatic: denies: anemia, blood clots, easy bleeding, easy bruising, swollen glands, others Endocrine: denies: excessive hunger, excessive sweating, excessive thirst, excessive urination, flushing, intolerance to cold, intolerance to heat, unexplained weight gain, unexplained weight loss, others Psychiatric: denies: anxiety, bipolar disorder, depression, hopeless, panic disorder, schizophrenia, sleepless, suicidal, others All Other Systems: Reviewed and Negative Physical Exam General Appearance: No Apparent Distress, Normal HEENT: Normal ENT Inspection, Pharynx Normal Neck: Full Range of Motion, Non-Tender, Normal, Normal Inspection Respiratory: Chest Non-Tender, Lungs Clear, No Accessory Muscle Use, No Respiratory Distress, Normal Breath Sounds Cardiovascular: No Edema, No Murmur, No Gallop, Normal Peripheral Pulses, Regular Rate/Rhythm Breast Exam: Deferred Gastrointestinal: Epigastric, No Organomegaly, No Pulsatile Mass, Normal Bowel Sounds, Soft, Tenderness Genitalia: Deferred Pelvic: Deferred Rectal: Deferred Extremities: No calf tenderness, Normal capillary refill, Normal inspection, Normal range of motion, Non-tender, No pedal edema Musculoskeletal : Apperance: Normal Neurologic: Alert, inner layer scrubber tender II-XII nml as Tested, No Motor Deficits, Normal Affect, Normal Mood, No Sensory Deficits Cerebellar Function: Normal Reflexes: Normal Skin: Dry, Normal Color, Warm Lymphatic: No Adenopathy Was a procedure done? Was a procedure done?: No GI differential Dx Differential Diagnosis: Gastritis/PUD, Gastroenteritis, Bacterial, Viral X-Ray, Labs, Meds, VS Vital Signs Date Time Temp Pulse Resp B/P (MAP) Pulse Ox O2 Delivery O2 Flow Rate FiO2 08/25/25 09:26 97 16 132/66 08/25/25 08:25 74 17 132/78 08/25/25 07:47 75 20 132/78 (96) 99 08/25/25 07:47 74 17 98 Room Air* 0 21 08/25/25 06:54 97.7 70 18 159/98 (118) 98 97.7 08/25/25 06:34 97.6 77 16 133/87 97 97.6 Lab Test 08/25/25 07:48 08/25/25 06:55 Range/Units Troponin I High Sensitivity 64 *H 79 *H </=54 ng/L White Blood Count 11.6 H 4.4-10.8 10^3/uL Red Blood Count 5.26 4.5-5.90 10^6/uL Hemoglobin 17.2 13.5-17.5 g/dL Hematocrit 50.0 41.0-53.0 % Mean Corpuscular Volume 95.1 80.0-100.0 fL Mean Corpuscular Hemoglobin 32.7 H 28.0-32.0 pg Mean Corpuscular Hemoglobin Concent 34.4 32.0-36.0 g/dL Red Cell Distribution Width 13.9 11.8-14.3 % Platelet Count 206 140-450 10^3/uL Mean Platelet Volume 9.2 6.9-10.8 fL Neutrophils (%) (Auto) 75.8 37.0-80.0 % Lymphocytes (%) (Auto) 14.6 10.0-50.0 % Monocytes (%) (Auto) 9.1 0.0-12.0 % Eosinophils (%) (Auto) 0.2 0.0-7.0 % Basophils (%) (Auto) 0.3 0.0-2.0 % Neutrophils # (Auto) 8.8 H 1.6-8.6 10 ^3/uL Lymphocytes # (Auto) 1.7 0.4-5.4 10 ^3/uL Monocytes # (Auto) 1.1 0-1.3 10 ^3/uL Eosinophils # (Auto) 0 0-0.8 10 ^3/uL Basophils # (Auto) 0 0-0.2 10 ^3/uL Nucleated Red Blood Cells 0.0 % Sodium Level 138 136-145 mmol/L Potassium Level 3.9 3.5-5.1 mmol/L Chloride Level 104 98-107 mmol/L Carbon Dioxide Level 24 20-31 mmol/L Anion Gap 10 5-15 Blood Urea Nitrogen 11 9-23 mg/dL Creatinine 1.04 0.700-1.30 mg/dL Glomerular Filtration Rate Calc 81 >90 mL/min BUN/Creatinine Ratio 10.6 10.0-20.0 Serum Glucose 118 H 74-106 mg/dL Calcium Level 9.0 8.7-10.4 mg/dL Total Bilirubin 0.5 0.2-1.0 mg/dL Aspartate Amino Transferase (AST) 20 13-40 U/L Alanine Aminotransferase (ALT) 21 7-40 U/L Alkaline Phosphatase 44 L 46-116 U/L Total Protein 7.5 5.7-8.2 g/dL Albumin 4.5 3.2-4.8 g/dL Lipase 80 H 12-53 U/L Current Medications Medications (Trade) Dose Ordered Sig/Ashley Route Start Time Stop Time Status Last Admin Sodium Chloride 1,000 ml @ 1,000 mls/hr Q1H ONCE IV 08/25/25 06:45 08/25/25 07:44 DC 08/25/25 08:24 Morphine Sulfate 4 mg ONCE ONCE IV 08/25/25 06:45 08/25/25 06:47 DC 08/25/25 08:25 Ondansetron HCl (Zofran) 4 mg ONCE ONCE IV 08/25/25 06:45 08/25/25 06:47 DC 08/25/25 08:25 Pantoprazole Sodium (Protonix) 40 mg ONCE ONCE IV 08/25/25 06:45 08/25/25 06:47 DC 08/25/25 08:[address] [address] Ph: [phone] DIAGNOSTIC IMAGING Diagnostic Imaging Report : [id number] Signed PATIENT: JACKSON GO ACCT: [id number] UNIT: [id number] : 1965 LOC: ER ROOM / BED: / AGE / SEX: 60 / M ADM STATUS: REG ER SERVICE 0645 ORDERING PHYSICIAN: BING BAKER MD PROCEDURE(s): ABPLIV - CT AB PEL WITH IV CON ONLY REASON: abdominal pain, epigastric and ruq ORDER NUMBER(s): [id number], ACCESSION NUMBER(s): [id number] Exam: CT CT AB PEL WITH IV CON ONLY History: Abdominal pain, epigastric and ruq Comparison Study: None Contrast: Type of contrast: Omnipaque 300 Contrast injected: 95 mL Contrast wasted: 0 TECHNIQUE: CT of the abdomen pelvis was performed with intravenous contrast. Coronal sagittal reformatted images are provided. Radiation Dose Information: CT Dose: CTDI volume is 15.3 mGy. Dose-length product is 985.2 mGy*cm FINDINGS: Lung Bases: No acute or significant lung base finding. Normal heart size. No pleural or pericardial effusion. Liver: The liver is normal in size. No focal lesions. Normal hepatic vascular enhancement. Gallbladder and Biliary Tree: The gallbladder biliary ductal dilatation Spleen: Unremarkable Pancreas: The pancreas is normal in appearance without focal lesions or abnormal enhancement. Adrenal Glands: Unremarkable Kidneys: Kidneys demonstrate normal symmetric enhancement without focal lesions, calculi or hydronephrosis. Bladder: Unremarkable Bowel: The stomach is grossly normal in appearance. The small bowel is normal caliber. No bowel obstruction or small bowel mucosal thickening. There is diffuse thickening of the entire colon with Fat stranding. No acute appendicitis Peritoneum: No pneumoperitoneum. No ascites. Lymphadenopathy: No mesenteric, retroperitoneal or periportal lymphadenopathy. Abdominal Wall and Mesentery: Unremarkable. Vasculature: The visualized abdominal aorta is normal in size and caliber. Abdominal and pelvic vessels demonstrate normal enhancement. Pelvic Organs: Unremarkable Musculoskeletal: No aggressive focal bony lesions, acute fractures or dislocation. Soft tissues: Unremarkable. IMPRESSION: 1. Diffuse thickening of the entire colon with surrounding fat stranding compatible with pancolitis. This may be infectious or inflammatory in etiology. 2. Mild intrahepatic biliary ductal dilatation. Right upper quadrant ultrasound and MRCP obtained further evaluation. ATED BY: CANDIDA DE LA CRUZ MD DICTATED DATE/TIME: 08/25/25908 SIGNED BY: CANDIDA DE LA CRUZ MD SIGNED DATE/TIME: 08/25/25908 CC: [address] [address] Ph: [phone] DIAGNOSTIC IMAGING Diagnostic Imaging Report : [id number] Signed PATIENT: JACKSON GO ACCT: [id number] UNIT: [id number] : 1965 LOC: ER ROOM / BED: / AGE / SEX: 60 / M ADM STATUS: REG ER SERVICE 4 ORDERING PHYSICIAN: BING BAKER MD PROCEDURE(s): CXRP - CHEST PORTABLE REASON: cp ORDER NUMBER(s): [id number], ACCESSION NUMBER(s): [id number] CHEST RADIOGRAPH Indication: cp Technique: Single frontal view of the chest was obtained Comparison: XY CHEST PORTABLE on DOS: 07/26/24 FINDINGS: Lines and Tubes: None Lungs: No focal consolidation. Pleura: No effusion. No pneumothorax. Cardiomediastinal contours: Unremarkable Bones: No acute osseous abnormality. Old left clavicular fracture. IMPRESSION: 1. No acute cardiopulmonary disease. ATED BY: CANDIDA DE LA CRUZ MD DICTATED DATE/TIME: 08/25/25830 SIGNED BY: CANDIDA DE LA CRUZ MD SIGNED DATE/TIME: 08/25/25830 CC: Time of 1ST Reevaluation: 07:10 Reevaluation 1ST: Unchanged Patient Education/Counseling: Diagnosis, Treatment Family Education/Counseling: No Family Present Additional Information MEDICAL DECISION MAKING PRESENTATION & DIFFERENTIAL DIAGNOSIS 60-year-old male presenting with acute, sharp epigastric pain x1 week. Differential diagnosis included Acute Coronary Syndrome (ACS), Aortic Dissection, Infectious Colitis, Diverticulitis, and Peptic Ulcer Disease. DATA REVIEWED - EKG: Normal Sinus Rhythm. No acute ST-segment elevation or depression. - Labs: - Troponin elevated at 79 (suspicion for Type 2 demand ischemia vs NSTEMI). - Lipase mildly elevated at 80. - CBC and BMP unremarkable. - Imaging: - CXR: Benign. - CT Abdomen/Pelvis: Findings concerning for pancolitis and inflammatory changes. ED COURSE & RISK STRATIFICATION Patient required parenteral management for infection and symptom control. - Interventions: - Sepsis/Infection coverage: IV Ancef and Flagyl initiated. - Resuscitation: IV Fluids. - Symptom Control: IV Morphine for intractable pain, Zofran, Protonix. - Re-evaluation: Pain improved but persistent; patient requires inpatient treatment. DISPOSITION & PLAN Admit to Medicine. Medical necessity for admission is supported by: 1. Infectious Colitis (Pancolitis): Requires IV antibiotics and hydration unavailable outpatient. 2. Elevated Troponin (79): Requires serial cardiac enzymes and telemetry to differentiate between NSTEMI and demand ischemia secondary to acute abdominal infection. 3. Intractable Pain: Requiring parenteral analgesia. SEPSIS Sepsis Screen Physician Orders Urinalysis (08/25/25 06:45) Ct Ab Pel With Iv Con Only (08/25/25 06:45) Electrocardigram (08/25/25 07:35) Chest Portable (08/25/25 07:35) Electrocardigram (08/25/25 08:35) Electrocardigram (08/25/25 10:35) Troponin-I Hs (08/25/25 10:35) Lactic Acid W/ Reflex Order (08/25/25 09:16) Blood Culture (08/25/25 09:16) Cefazolin 2 Gm/V1q60dp (Ancef) (08/25/25 09:30) Metronidazole 500mg/100ml (Flagyl 500mg/ (08/25/25 09:30) Vital Signs Date Time Temp Pulse Resp B/P (MAP) Pulse Ox O2 Delivery O2 Flow Rate FiO2 08/25/25 09:26 97 16 132/66 08/25/25 08:25 74 17 132/78 08/25/25 07:47 75 20 132/78 (96) 99 08/25/25 07:47 74 17 98 Room Air* 0 21 08/25/25 06:54 97.7 70 18 159/98 (118) 98 97.7 08/25/25 06:34 97.6 77 16 133/87 97 97.6 Laboratory Tests Test 08/25/25 06:55 White Blood Count 11.6 10^3/uL (4.4-10.8) H Medications Medications Dose Ordered Sig/Ashley Route Start Time Stop Time Status Last Admin Dose Admin Morphine Sulfate 4 mg ONCE ONCE IV 08/25/25 06:45 08/25/25 06:47 DC 08/25/25 08:25 Ondansetron HCl 4 mg ONCE ONCE IV 08/25/25 06:45 08/25/25 06:47 DC 08/25/25 08:25 Pantoprazole Sodium 40 mg ONCE ONCE IV 08/25/25 06:45 08/25/25 06:47 DC 08/25/25 08:25 Sodium Chloride 1,000 ml @ 1,000 mls/hr Q1H ONCE IV 08/25/25 06:45 08/25/25 07:44 DC 08/25/25 08:24 Departure 1 Departure Time of Disposition: 09:36 Impression: Primary Impression: NSTEMI (non-ST elevated myocardial infarction) Additional Impressions: Intractable abdominal pain Pancolitis Disposition: ADMITTED INPATIENT Admit to: Tele Condition: Guarded Critical Care Note Critical Care Time?: No Stability Stability form required: No Heart Score Heart Score: Heart Score Response (Comments) Value History N/A 0 EKG N/A 0 Age N/A 0 Risk Factors N/A 0 Troponin N/A 0 Total 0 I personally scribed for BING BAKER MD ([email or web address]) on 08/25/25 at 06:37. Electronically submitted by Bella Dutton ([email or web address]). I personally scribed for BING BAKER MD ([email or web address]) on 08/25/25 at 06:50. Electronically submitted by Bella Dutton ([email or web address]). I personally scribed for BING BAKER MD ([email or web address]) on 08/25/25 at 09:33. Electronically submitted by Bella Dutton ([email or web address]). I personally scribed for BING BAKER MD ([email or web address]) on 08/25/25 at 09:34. Electronically submitted by Bella Dutton ([email or web address]). BING BAKER MD Aug 25, 2025 06:37
[2025-08-25 07:22] LABS: Hematocrit 50.0 % (41.0-53.0); Hemoglobin 17.2 g/dL (13.5-17.5); Mean Corpuscular Hemoglobin 32.7 pg (28.0-32.0); Mean Corpuscular Volume 95.1 fL (80.0-100.0); Nucleated Red Blood Cells % 0.0 %
[2025-08-25 07:26] LABS: Alanine Aminotransferase 21 U/L (7-40); Albumin 4.5 g/dL (3.2-4.8); Anion Gap 10 (5-15); BUN/Creatinine Ratio 10.6 (10.0-20.0); Blood Urea Nitrogen 11 mg/dL (9-23); Calcium 9.0 mg/dL (8.7-10.4); Carbon Dioxide 24 mmol/L (20-31); Chloride 104 mmol/L (98-107); Potassium 3.9 mmol/L (3.5-5.1); Sodium 138 mmol/L (136-145); Total Protein 7.5 g/dL (5.7-8.2)
[2025-08-25 07:27] LABS: Bilirubin, Total 0.5 mg/dL (0.2-1.0)
[2025-08-25 07:28] LABS: Alkaline Phosphatase 44 U/L (46-116); Glucose 118 mg/dL (74-106); Lipase 80 U/L (12-53)
[2025-08-25 07:47] VITALS: PULSE 74; RESP 17; O2SAT 98
[2025-08-25] MEDS: SODIUM CHLORIDE 0.9% 1,000 ML IV ONE (08:24)
[2025-08-25] MEDS: MORPHINE SULFATE 4 MG/ML SYR/VIAL IV ONE (08:25)
[2025-08-25] MEDS: ONDANSETRON HCL 4 MG/2 ML VIAL IV ONE (08:25)
[2025-08-25] MEDS: PANTOPRAZOLE 40 MG/10 ML VIAL INJ IV ONE (08:25)
[2025-08-25] MEDS: IOHEXOL 300 MG/ML 100ML BOTTLE IJ ONE (08:25)
--- NOTE | 2025-08-25 08:33 | DVH ---
CHEST RADIOGRAPH Indication: cp Technique: Single frontal view of the chest was obtained Comparison: XY CHEST PORTABLE on DOS: 07/26/24 FINDINGS: Lines and Tubes: None Lungs: No focal consolidation. Pleura: No effusion. No pneumothorax. Cardiomediastinal contours: Unremarkable Bones: No acute osseous abnormality. Old left clavicular fracture. IMPRESSION: 1. No acute cardiopulmonary disease.
--- NOTE | 2025-08-25 09:12 | DVH ---
Exam: CT CT AB PEL WITH IV CON ONLY History: Abdominal pain, epigastric and ruq Comparison Study: None Contrast: Type of contrast: Omnipaque 300 Contrast injected: 95 mL Contrast wasted: 0 TECHNIQUE: CT of the abdomen pelvis was performed with intravenous contrast. Coronal sagittal reformatted images are provided. Radiation Dose Information: CT Dose: CTDI volume is 15.3 mGy. Dose-length product is 985.2 mGy*cm FINDINGS: Lung Bases: No acute or significant lung base finding. Normal heart size. No pleural or pericardial effusion. Liver: The liver is normal in size. No focal lesions. Normal hepatic vascular enhancement. Gallbladder and Biliary Tree: The gallbladder biliary ductal dilatation Spleen: Unremarkable Pancreas: The pancreas is normal in appearance without focal lesions or abnormal enhancement. Adrenal Glands: Unremarkable Kidneys: Kidneys demonstrate normal symmetric enhancement without focal lesions, calculi or hydronephrosis. Bladder: Unremarkable Bowel: The stomach is grossly normal in appearance. The small bowel is normal caliber. No bowel obstruction or small bowel mucosal thickening. There is diffuse thickening of the entire colon with Fat stranding. No acute appendicitis Peritoneum: No pneumoperitoneum. No ascites. Lymphadenopathy: No mesenteric, retroperitoneal or periportal lymphadenopathy. Abdominal Wall and Mesentery: Unremarkable. Vasculature: The visualized abdominal aorta is normal in size and caliber. Abdominal and pelvic vessels demonstrate normal enhancement. Pelvic Organs: Unremarkable Musculoskeletal: No aggressive focal bony lesions, acute fractures or dislocation. Soft tissues: Unremarkable. IMPRESSION: 1. Diffuse thickening of the entire colon with surrounding fat stranding compatible with pancolitis. This may be infectious or inflammatory in etiology. 2. Mild intrahepatic biliary ductal dilatation. Right upper quadrant ultrasound and MRCP obtained further evaluation.
[2025-08-25] MEDS: ceFAZolin 2 GM/D5W50ml 50 ML IV ONE (10:14)
[2025-08-25] MEDS ORDERED: HYDROcodone-ACET 5/325MG TAB PO PRN (12:00)
[2025-08-25] MEDS: SODIUM CHLORIDE 0.9% 1,000 ML IV SCH (12:47)
[2025-08-25] MEDS: MORPHINE SULFATE INJ 2 MG/ml SYRG IV PRN (12:47)
[2025-08-25] MEDS: MORPHINE SULFATE INJ 2 MG/ml SYRG ONE (12:48)
[2025-08-25 13:17] LABS: Amphetamine Screen, Urine Neg (NEGATIVE); Urine Protein, UAD 1+ (Negative)
[2025-08-25 13:19] LABS: Barbiturate Scree,Urine Neg (NEGATIVE); Benzodiazephine Screen, Urine Neg (NEGATIVE); Cannabinoid Screen, Urine Pos (NEGATIVE); Cocaine Screen, Urine Neg (NEGATIVE); Opiate Scree,Urine Pos (NEGATIVE); Phencyclidine Screen, Urine Neg (NEGATIVE)
--- NOTE | 2025-08-25 13:32 | DVHHP2 ---
History of Present Illness History of Present Illness Mr. Dg Romano is a 60-year-old male with a past medical history of hypertension (not on medications), hyperlipidemia, asthma, depression, and prior UTIs who presents with epigastric and lower abdominal pain. He describes the pain as cramping, radiating to the right lower quadrant and suprapubic area. He reports nausea and diarrhea. He denies vomiting, melena, hematochezia, fever, or chills. He notes mild generalized weakness. In the ED, vitals showed BP 566152/59, afebrile, HR 6977, normal oxygenation. Labs show WBC 11.6, Hgb normal, CMP unremarkable, lipase 80, alkaline phosphatase 44. Troponins 79 - 64 - 63. A1C 5.4, lactate 1.2. UA: protein 1+, ketones 1+, trace blood. Toxicology positive for cannabinoids and opiates. CT abdomen/pelvis revealed diffuse colonic wall thickening with fat stranding consistent with pancolitis, plus mild intrahepatic biliary ductal dilatation. PMHx: Hypertension, hyperlipidemia, asthma, depression, prior UTIs. PSHx: None. Social History: Uses CBD, drinks alcohol, no other substances reported. Allergies: None. ROS: All systems reviewed and negative except as described in HPI. Review of Systems Allergies: Coded Allergies: NO KNOWN ALLERGIES (Unverified , 07/26/24) Medications Current Medications Medications Dose Ordered Sig/Ashley Route Start Time Stop Time Status Last Admin Dose Admin Sodium Chloride 1,000 ml @ 60 mls/hr [id number] IV 08/25/25 12:00 08/25/25 12:47 60 MLS/HR Acetaminophen 650 mg Q6HP PRN PO 08/25/25 12:00 Acetaminophen/ Hydrocodone Bitart 1 tab Q4HP PRN PO 08/25/25 12:00 Morphine Sulfate 2 mg Q4HPRN PRN IV 08/25/25 12:00 08/25/25 12:47 2 MG Ceftriaxone Sodium 50 ml @ 100 mls/hr DAILY@09 IV 08/26/25 09:00 Metronidazole 100 ml @ 100 mls/hr Q8HR IV 08/25/25 14:00 Exam Vital Signs Vital Signs Date Time Temp Pulse Resp B/P (MAP) Pulse Ox O2 Delivery O2 Flow Rate FiO2 08/25/25 12:47 69 14 146/59 08/25/25 12:08 98.0 99 98.0 08/25/25 07:47 Room Air* 0 21 Exam General: Alert, in mild discomfort. HEENT: Normal. Cardiac: Regular rhythm, no murmurs. Lungs: Clear bilaterally. Abdomen: Tenderness in epigastric region, right upper quadrant, and suprapubic area. No rebound or guarding. Bowel sounds present. Extremities: No edema. Neuro: Normal. Skin: Normal. Labs/Xrays Labs Test 08/25/25 12:49 08/25/25 09:49 08/25/25 06:55 Range/Units Urine Color Yellow Yellow Urine Clarity Clear Clear Urine pH 6.5 5.0-9.0 Urine Specific [place] > 1.050 H 1.001-1.035 Urine Protein 1+ H Negative Urine Ketones 1+ H Negative Urine Blood Trace H Negative /uL Urine Nitrite Negative Negative Urine Bilirubin Negative Negative Urine Urobilinogen Normal Negative mg/dL Urine Leukocyte Esterase Negative Negative /uL Urine RBC 5 0 - 3 /hpf Urine Microscopic WBC 3 0-3 /HPF Urine Squamous Epithelial Cells None seen <5 /hpf Urine Bacteria None seen None Seen /hpf Urine Glucose Normal Normal mg/dL Urine Opiates Screen Pos NEGATIVE Urine Fentanyl Screen Neg NEGATIVE Urine Barbiturates Screen Neg NEGATIVE Urine Phencyclidine Screen Neg NEGATIVE Urine Amphetamines Screen Neg NEGATIVE Urine Benzodiazepines Screen Neg NEGATIVE Urine Cocaine Screen Neg NEGATIVE Urine Cannabinoids Screen Pos NEGATIVE Lactic Acid Level 1.2 0.4-2.0 mmol/L Troponin I High Sensitivity 63 *H </=54 ng/L White Blood Count 11.6 H 4.4-10.8 10^3/uL Red Blood Count 5.26 4.5-5.90 10^6/uL Hemoglobin 17.2 13.5-17.5 g/dL Hematocrit 50.0 41.0-53.0 % Mean Corpuscular Volume 95.1 80.0-100.0 fL Mean Corpuscular Hemoglobin 32.7 H 28.0-32.0 pg Mean Corpuscular Hemoglobin Concent 34.4 32.0-36.0 g/dL Red Cell Distribution Width 13.9 11.8-14.3 % Platelet Count 206 140-450 10^3/uL Mean Platelet Volume 9.2 6.9-10.8 fL Neutrophils (%) (Auto) 75.8 37.0-80.0 % Lymphocytes (%) (Auto) 14.6 10.0-50.0 % Monocytes (%) (Auto) 9.1 0.0-12.0 % Eosinophils (%) (Auto) 0.2 0.0-7.0 % Basophils (%) (Auto) 0.3 0.0-2.0 % Neutrophils # (Auto) 8.8 H 1.6-8.6 10 ^3/uL Lymphocytes # (Auto) 1.7 0.4-5.4 10 ^3/uL Monocytes # (Auto) 1.1 0-1.3 10 ^3/uL Eosinophils # (Auto) 0 0-0.8 10 ^3/uL Basophils # (Auto) 0 0-0.2 10 ^3/uL Nucleated Red Blood Cells 0.0 % Sodium Level 138 136-145 mmol/L Potassium Level 3.9 3.5-5.1 mmol/L Chloride Level 104 98-107 mmol/L Carbon Dioxide Level 24 20-31 mmol/L Anion Gap 10 5-15 Blood Urea Nitrogen 11 9-23 mg/dL Creatinine 1.04 0.700-1.30 mg/dL Glomerular Filtration Rate Calc 81 >90 mL/min BUN/Creatinine Ratio 10.6 10.0-20.0 Serum Glucose 118 H 74-106 mg/dL Hemoglobin A1c 5.4 <5.7 % A1C Calcium Level 9.0 8.7-10.4 mg/dL Total Bilirubin 0.5 0.2-1.0 mg/dL Aspartate Amino Transferase (AST) 20 13-40 U/L Alanine Aminotransferase (ALT) 21 7-40 U/L Alkaline Phosphatase 44 L 46-116 U/L Total Protein 7.5 5.7-8.2 g/dL Albumin 4.5 3.2-4.8 g/dL Lipase 80 H 12-53 U/L SEPSIS Sepsis Screen Date sepsis recognized/suspect: Aug 25, 2025 Time Sepsis recognized/suspect: 746 Recent Procedure: No On Antibiotic Therapy: No Respiratory Rate >20: No Heart Rate >90: No Temp<36 C (96.8 F) or >38.3 C: No SBP <90 or MAP <65 mmHG: No New Acute Mental Status Change: No Is the patient on CPAP, BIPAP,: No Physician Orders Ct Ab Pel With Iv Con Only (08/25/25 06:45) Electrocardigram (08/25/25 07:35) Chest Portable (08/25/25 07:35) Electrocardigram (08/25/25 08:35) Electrocardigram (08/25/25 10:35) Blood Culture (08/25/25 09:16) Admit (08/25/25 11:58) Code Status (08/25/25 11:58) Vital Signs .PER UNIT PROTOCOL (08/25/25 11:58) Review Orders With Adm.Md (08/25/25 11:58) Npo (Nothing By Mouth) Diet (08/25/25 Lunch) Sodium Chloride 0.9% (08/25/25 12:00) Acetaminophen Tablet (Tylenol Tablet) (08/25/25 12:00) Notify Md Of Changes From Base (08/25/25 11:58) Advance Directive (08/25/25 11:58) Patient Condition (08/25/25 11:58) Allergies (08/25/25 11:58) Hydrocodone-Acet 5/325mg Tab ([place] 5/32 (08/25/25 12:00) Ambulate Every 4hours Q4H (08/25/25 11:58) Morphine Sulfate Injection (08/25/25 12:00) Oxygen By Nasal Cannula (08/25/25 11:58) Stat Ekg For Chest Pain (08/25/25 11:58) Notify Md Of Changes From Base (08/25/25 11:58) Paraeducator For 24 Hours (08/25/25 11:58) Emergency Dysrhythmia Protocol (08/25/25 11:58) Rhythm Strips Once Every Shift (08/25/25 11:58) Echo 2d Mode Cardiac Dop (08/25/25 11:58) Mrcp Mri (08/25/25 11:58) Ceftriaxone 1gm/50ml (Rocephin) (08/26/25 09:00) Metronidazole 500mg/100ml (Flagyl 500mg/ (08/25/25 14:00) Vital Signs Date Time Temp Pulse Resp B/P (MAP) Pulse Ox O2 Delivery O2 Flow Rate FiO2 08/25/25 12:47 69 14 146/59 08/25/25 12:08 98.0 69 14 146/59 (88) 99 98.0 08/25/25 12:08 98.2 69 14 146/59 (88) 99 98.2 08/25/25 10:19 59 18 167/86 (113) 99 08/25/25 09:26 97 16 132/66 08/25/25 08:25 74 17 132/78 08/25/25 07:47 75 20 132/78 (96) 99 08/25/25 07:47 74 17 98 Room Air* 0 21 08/25/25 06:54 97.7 70 18 159/98 (118) 98 97.7 08/25/25 06:34 97.6 77 16 133/87 97 97.6 Laboratory Tests Test 08/25/25 06:55 08/25/25 09:49 White Blood Count 11.6 10^3/uL (4.4-10.8) H Lactic Acid Level 1.2 mmol/L (0.4-2.0) Medications Medications Dose Ordered Sig/Ashley Route Start Time Stop Time Status Last Admin Dose Admin Cefazolin Sodium/ Dextrose 50 ml @ 50 mls/hr ONCE ONCE IV 08/25/25 09:30 08/25/25 10:29 DC 08/25/25 10:14 50 MLS/HR Metronidazole 100 ml @ 100 mls/hr ONCE ONCE IV 08/25/25 09:30 08/25/25 10:29 DC 08/25/25 10:46 100 MLS/HR Morphine Sulfate 2 mg Q4HPRN PRN IV 08/25/25 12:00 08/25/25 12:47 2 MG Morphine Sulfate 4 mg ONCE ONCE IV 08/25/25 06:45 08/25/25 06:47 DC 08/25/25 08:25 4 MG Ondansetron HCl 4 mg ONCE ONCE IV 08/25/25 06:45 08/25/25 06:47 DC 08/25/25 08:25 4 MG Pantoprazole Sodium 40 mg ONCE ONCE IV 08/25/25 06:45 08/25/25 06:47 DC 08/25/25 08:25 40 MG Sodium Chloride 1,000 ml @ 60 mls/hr [id number] IV 08/25/25 12:00 08/25/25 12:47 60 MLS/HR Sodium Chloride 1,000 ml @ 1,000 mls/hr Q1H ONCE IV 08/25/25 06:45 08/25/25 07:44 DC 08/25/25 08:24 1,000 MLS/HR Assessment/Plan Assessment/Plan # Sepsis due to acute pancolitis CT shows diffuse colonic thickening with surrounding fat stranding consistent with pancolitis. Stool studies (FOBT, stool studies) and C. difficile testing ordered. Started IV metronidazole and ceftriaxone, IV fluids, patient NPO. Monitor abdominal exam and inflammatory markers. # Elevated troponin Troponin 79-64-63 likely demand-related, no chest pain reported. EKG normal; echocardiogram ordered for further assessment. # Mild intrahepatic biliary ductal dilatation CT noted ductal dilation; MRCP ordered to evaluate for possible obstruction or choledocholithiasis. Continue monitoring LFTs. # Hypertension Elevated BP on arrival but not on home medications. Monitor BP trends, hold on BP meds due to sepsis # Hyperlipidemia Not currently on therapy. Resume statin once starting PO meds. # Asthma Stable. # Depression Stable Case discussed with Dr Garnica Full code No DVT prophylaxis in the case procedures are needed Plan discussed with: Patient, Other (rn) My Orders Orders - KIMBERLY WICK Procedure Category Date Status Time Admit ADMIT 08/25/25 Transmitted 11:58 Code Status CODE 08/25/25 Transmitted 11:58 Vital Signs [facility] 08/25/25 In Process 11:58 Review Orders With KRISTINA 08/25/25 In Process Adm. 11:58 Npo (Nothing By DIET 08/25/25 Transmitted Mouth) Diet Lunch Sodium Chloride 0.9% PHA 08/25/25 In Process 12:00 Acetaminophen Tablet PHA 08/25/25 In Process (Tylenol Tablet) 12:00 Notify Of Changes KRISTINA 08/25/25 In Process From Base 11:58 Advance Directive KRISTINA 08/25/25 In Process 11:58 Patient Condition ORDERS 08/25/25 Transmitted 11:58 Allergies KRISTINA 08/25/25 In Process 11:58 Hydrocodone-Acet PHA 08/25/25 In Process 5/325mg Tab ([place] 12:00 Ambulate Every 4hours KRISTINA 08/25/25 In Process 11:58 Morphine Sulfate PHA 08/25/25 In Process Injection 12:00 Oxygen By Nasal RT 08/25/25 Transmitted Cannula 11:58 Stat Ekg For Chest KRISTINA 08/25/25 In Process Pain 11:58 Notify Of Changes [facility] 08/25/25 In Process From Base 11:58 Paraeducator For [facility] 08/25/25 In Process 24 Hours 11:58 Emergency Dysrhythmia [facility] 08/25/25 In Process Protocol 11:58 Rhythm Strips Once [facility] 08/25/25 In Process Every Shift 11:58 Echo 2d Mode Cardiac US 08/25/25 Logged DOP 11:58 Mrcp Mri MRI 08/25/25 Logged 11:58 Ceftriaxone 1gm/50ml PHA 08/26/25 In Process (Rocephin) 09:00 Metronidazole PHA 08/25/25 In Process 500mg/100ml (Flagyl 14:00 Date of Service: Aug 25, 2025 Billing Provider: VIPIN GARNICA MD Common Visit Codes: 03933-[id number] INP/OBS CARE (HIGH) Secondary Visit Codes: 60219-[id number] CARE PLAN 30 MINUTES KIMBERLY WICK Aug 25, 2025 13:32
[2025-08-25 14:24] VITALS: BP 158/77; PULSE 69; RESP 16; TEMP 98.5; O2SAT 97
--- NOTE | 2025-08-25 16:04 | DVH ---
CLINICAL INFORMATION: Intrahepatic biliary ductal dilatation. TECHNIQUE: Multisequence multiplanar MRI images of the abdomen were obtained without IV contrast. Heavily T2-weighted MRCP images were obtained. 3D MRCP images were created. COMPARISON: CT dated 08/25/2025. FINDINGS: Gallbladder is distended. No gallstones visualized in the gallbladder on MRI. Common bile duct measures up to 6 mm in diameter, within normal limits. No intrahepatic or extrahepatic biliary ductal dilatation visualized on this exam. No filling defect or stricture identified in the common bile duct on MRCP images. Pancreatic duct also appears unremarkable. The liver, spleen, pancreas, and adrenal glands appear grossly unremarkable on noncontrast enhanced MRI images. There is no hydronephrosis in either kidney. T2 hyperintense lesion at the superior pole of the right kidney measures up to 1.3 cm, likely a cyst when correlated with same day contrast enhanced CT exam. No abdominal aortic ane urysm. No other significant findings are seen. IMPRESSION: 1. No intrahepatic or extrahepatic biliary ductal dilatation demonstrated on MRCP. No filling defect or stricture identified in the common bile duct. No common bile duct obstruction. 2. Additional nonacute findings as described above.
[2025-08-25 17:50] VITALS: BP 172/87; PULSE 67; RESP 19; TEMP 98.9; O2SAT 97
[2025-08-25] MEDS: LOSARTAN POTASSIUM 50 MG TAB PO SCH (18:27)
[2025-08-25 20:00] VITALS: PULSE 73; RESP 17; O2SAT 96
[2025-08-25] MEDS: MORPHINE SULFATE 4 MG/ML SYR/VIAL ONE (20:24)
[2025-08-25 21:00] VITALS: BP 153/85; PULSE 73; RESP 17; TEMP 97.7; O2SAT 96
[2025-08-25] MEDS: PANTOPRAZOLE 40 MG/10 ML VIAL INJ IV SCH (21:33)
[2025-08-25] MEDS: ACETAMINOPHEN 325 MG TAB PO PRN (23:16)
[2025-08-25] MEDS: ACETAMINOPHEN 325 MG TAB PO ONE (23:17)
[2025-08-26] VITALS (7 sets, daily range): BP systolic 126–151; BP diastolic 67–77; PULSE 54–78; RESP 17–20; TEMP 97.5–98.1; O2SAT 95–97
[2025-08-26] MEDS: ACETAMINOPHEN 325 MG TAB PO ONE (06:33)
[2025-08-26 07:11] LABS: Hematocrit 45.5 % (41.0-53.0); Hemoglobin 15.5 g/dL (13.5-17.5); Mean Corpuscular Hemoglobin 32.3 pg (28.0-32.0); Mean Corpuscular Volume 94.7 fL (80.0-100.0); Nucleated Red Blood Cells % 0.1 %
[2025-08-26 07:34] LABS: Alanine Aminotransferase 17 U/L (7-40); Albumin 3.8 g/dL (3.2-4.8); Anion Gap 6 (5-15); BUN/Creatinine Ratio 10.4 (10.0-20.0); Bilirubin, Total 0.4 mg/dL (0.2-1.0); Blood Urea Nitrogen 10 mg/dL (9-23); Carbon Dioxide 26 mmol/L (20-31); Chloride 107 mmol/L (98-107); Potassium 3.7 mmol/L (3.5-5.1); Sodium 139 mmol/L (136-145); Total Protein 6.5 g/dL (5.7-8.2)
[2025-08-26 07:50] LABS: Alkaline Phosphatase 35 U/L (46-116); Calcium 8.7 mg/dL (8.7-10.4); Glucose 118 mg/dL (74-106)
--- NOTE | 2025-08-26 08:40 | DVHSR ---
APPROVED REPORT EXAM: Two-dimensional and M-mode echocardiogram with Doppler and color Doppler. Blood Pressure: 167/86 mmHg INDICATION NSTEMI type 2 RISK FACTORS Height: 6'0", Weight: 228 DIMENSIONS LVDd 5.1 (3.8-5.7cm) LA (2D) 4.2 (1.9-4.0cm) Aortic Root 3.8 (2.0-3.7cm) LVDs 3.6 (2.5-4.0cm) LA (MM) (1.9-4.0cm) Aortic Cusp Exc 1.8 (1.5-2.0cm) EF (%) 60.0 (55-70%) Rt. Atrium 3.9 (1.9-4.0cm) Asc. Aorta cm IVSd 1.1 (0.7-1.1cm) RV (D) 4.0 (1.8-2.4cm) PWd 1.1 (0.7-1.1cm) Mitral Valve Mitral Mitral Stenosis E wave 0.90m/s MV Mean GR. mmHg A wave 0.64m/s MV Peak GR. mmHg E/A ratio 1.4 2D MVA cm2 DECEL Time 209ms PRESS 1/2 Time ms Aortic Valve Aortic Valve Aortic Stenosis V1 1.13m/s AO Mean GR. 4mmHg V2 1.44m/s AO Peak GR. 8mmHg LVOT Diameter 2.2 (1.8-2.4cm) Doppler FRANK 2.98cm2 Pulmonic Valve V2 1.05m/s Tricuspid Valve TR Velocity 2.92m/s RVSP 37mmHg Conclusion lvef 60% mild LVH normal rv function left atrium enlarged no severe valve abnormalities noted
[2025-08-26] MEDS: MORPHINE SULFATE 4 MG/ML SYR/VIAL ONE (10:03)
[2025-08-26] MEDS: MORPHINE SULFATE 4 MG/ML SYR/VIAL IV PRN (10:34)
[2025-08-26] MEDS ORDERED: CITA10TA6 PO (13:28)
[2025-08-26] MEDS ORDERED: TRAZ-228 PO (13:29)
[2025-08-26] MEDS ORDERED: BUPR150T18 PO (13:29)
[2025-08-26] MEDS ORDERED: CITA-77 PO (13:29)
[2025-08-26] MEDS ORDERED: TAMS0.4C39 PO (13:29)
--- NOTE | 2025-08-26 14:01 | ECG ---
[facility] Test Date: 2025-08-25 Test Time: 15:05:10 Pat Name: JACKSON GO Department: Room: 0296 A Gender: M Supervisor Cloth Winding: [id number] : [id number] Requested By: BING BAKER Order Number: [id number] Reading MD: Tai Her Measurements Intervals [place] Rate: 65 P: 40 MS: 166 QRS: 9 QRSD: 106 T: -5 QT: 400 QTc: 416 Interpretive Statements Normal sinus rhythm Nonspecific T wave abnormality Electronically Signed On 08-29-2025 18:25:48 PST by Tai Her Please click the below link to view image of tracing.
--- NOTE | 2025-08-26 15:15 | DVHPN2 ---
Reviewed: H&P Changes from previous H/P or p: No Changes General: Per HPI Objective Vitals Vital Signs Date Time Temp Pulse Resp B/P (MAP) Pulse Ox O2 Delivery O2 Flow Rate FiO2 08/26/25 13:00 97.8 54 20 126/76 (93) 97 97.8 08/25/25 20:00 Room Air* 0 21 Intake/Output Intake and Output 08/26/25 07:00 Intake Total 1770 ml Output Total 50 ml Balance 1720 ml Intake Oral 560 ml IV Total 1210 ml Output Urine Total 50 ml # Voids 4 Exam General: Alert, in mild discomfort. HEENT: Normal. Cardiac: Regular rhythm, no murmurs. Lungs: Clear bilaterally. Abdomen: Tenderness in epigastric region, right upper quadrant, and suprapubic area. No rebound or guarding. Bowel sounds hyper active Extremities: No edema. Neuro: Normal. Skin: Normal. Medications Current Medications Medications Dose Ordered Sig/Ashley Route Start Time Stop Time Status Last Admin Dose Admin Sodium Chloride 1,000 ml @ 60 mls/hr [id number] IV 08/25/25 12:00 08/26/25 06:33 60 MLS/HR Acetaminophen 650 mg Q6HP PRN PO 08/25/25 12:00 08/26/25 06:28 650 MG Acetaminophen/ Hydrocodone Bitart 1 tab Q4HP PRN PO 08/25/25 12:00 Metronidazole 100 ml @ 100 mls/hr Q8HR IV 08/25/25 14:00 08/26/25 06:25 100 MLS/HR Pantoprazole Sodium 40 mg BID IV 08/25/25 22:00 08/26/25 10:13 40 MG Losartan Potassium 50 mg DAILY PO 08/25/25 18:15 08/26/25 10:13 50 MG Ceftriaxone Sodium 50 ml @ 100 mls/hr DAILY@09 IV 08/27/25 09:00 Morphine Sulfate 2 mg Q4HPRN PRN IV 08/26/25 10:30 08/26/25 10:34 2 MG Laboratory Results Laboratory Tests 08/26/25 06:32 Chemistry Test 08/26/25 06:32 Albumin 3.8 g/dL (3.2-4.8) Calcium Level 8.7 mg/dL (8.7-10.4) Total Protein 6.5 g/dL (5.7-8.2) LFT Test 08/26/25 06:32 Alanine Aminotransferase (ALT) 17 U/L (7-40) Alkaline Phosphatase 35 U/L (46-116) L Aspartate Amino Transferase (AST) 20 U/L (13-40) Total Bilirubin 0.4 mg/dL (0.2-1.0) Urinalysis Test 08/25/25 12:49 Urine Color Yellow (Yellow) Urine Clarity Clear (Clear) Urine pH 6.5 (5.0-9.0) Urine Specific [place] > 1.050 (1.001-1.035) Urine Protein 1+ (Negative) H Urine Ketones 1+ (Negative) H Urine Blood Trace /uL (Negative) H Urine Nitrite Negative (Negative) Urine Bilirubin Negative (Negative) Urine Urobilinogen Normal mg/dL (Negative) Urine Leukocyte Esterase Negative /uL (Negative) Urine RBC 5 /hpf (0 - 3) Urine Microscopic WBC 3 /HPF (0-3) Urine Squamous Epithelial Cells None seen /hpf (<5) Urine Bacteria None seen /hpf (None Seen) Urine Glucose Normal mg/dL (Normal) Microbiology Microbiology Date/Time Source Procedure Growth Status 08/25/25 20:30 Stool Stool Culture - Preliminary Resulted 08/25/25 20:30 Stool Shiga Toxin I & II - Final Resulted 08/25/25 09:55 Blood Blood Culture - Preliminary NO GROWTH AFTER 24 HOURS OF INCUBATION. Resulted Labs and/or images reviewed: Labs reviewed by me, Image(s) reviewed by me Assessment/Plan Assessment/Plan Mr. Dg Romano is a 60-year-old male with a past medical history of hypertension (not on medications), hyperlipidemia, asthma, depression, and prior UTIs who presents with epigastric and lower abdominal pain. He describes the pain as cramping, radiating to the right lower quadrant and suprapubic area. He reports nausea and diarrhea. He denies vomiting, melena, hematochezia, fever, or chills. He notes mild generalized weakness. - In the ED, vitals showed BP 201850/59, afebrile, HR 6977, normal oxygenation. Labs show WBC 11.6, Hgb normal, CMP unremarkable, lipase 80, alkaline phosphatase 44. Troponins 79 - 64 - 63. A1C 5.4, lactate 1.2. UA: protein 1+, ketones 1+, trace blood. Toxicology positive for cannabinoids and opiates. CT abdomen/pelvis revealed diffuse colonic wall thickening with fat stranding consistent with pancolitis, plus mild intrahepatic biliary ductal dilatation. 08/26: ct has pancolitis, we have antibiotics onboard, patient not improving. MRCP no obstruction. We will remain on clear liquid diet, needs GI evaluation of per Sp colitis to rule out IBD. We will give1 time 40 Solu-Medrol to see if any improvement in pain. Of note, patient does take receptive anal intercourse, could be possible source for introduction of infection. Patient declines any blood in stools. Patient has history of upper endoscopy showing ulcers. We will continue Protonix IV 40 mg b.i.d., pending GI eval, continue IV antibiotics, stool culture pending. NSTEMI, echo, will keep tele. continue home depression medications. diagnosis: # Sepsis due to acute pancolitis # Elevated troponin, likely nstemi type 2 from dehydration # Mild intrahepatic biliary ductal dilatation # Hypertension # Hyperlipidemia # Asthma # Depression plan: IV ceftriaxone IV metronidazole Trial of steroids IV fluids, boluses to replenish with acute large diarrheal episodes Continue home medications for depression anxiety GI consult, appreciate recommendations Continue other home medications tele Full code Plan discussed with: Patient My Orders Orders - ENOC GARCIA MD Procedure Category Date Status Time * Gi Dvh Scow Derrick Operator CONS 08/26/25 Transmitted 14:11 Date of Service: Aug 26, 2025 Billing Provider: ENOC GARCIA MD Common Visit Codes: [id number] INP/OBS CARE(HIGH) ENOC GARCIA MD Aug 26, 2025 15:15
[2025-08-26] MEDS: SODIUM CHLORIDE 0.9% 500 ML IV ONE (15:45)
[2025-08-26] MEDS: CITALOPRAM HYDROBR 20 MG TAB PO ONE (16:22)
[2025-08-26] MEDS: methylPREDNISolone SOD SUCC 40 MG/ML VL IV ONE (16:23)
[2025-08-26] MEDS: SODIUM CHLORIDE 0.9% 1,000 ML IV SCH (18:16)
[2025-08-27] VITALS (7 sets, daily range): BP systolic 123–156; BP diastolic 58–92; PULSE 49–62; RESP 17–19; TEMP 97.3–98.4; O2SAT 95–98
[2025-08-27 06:47] LABS: Hematocrit 45.7 % (41.0-53.0); Hemoglobin 15.9 g/dL (13.5-17.5); Mean Corpuscular Hemoglobin 32.6 pg (28.0-32.0); Mean Corpuscular Volume 94.0 fL (80.0-100.0); Nucleated Red Blood Cells % 0.1 %
[2025-08-27 06:55] LABS: Alanine Aminotransferase 16 U/L (7-40); Albumin 3.9 g/dL (3.2-4.8); Anion Gap 9 (5-15); BUN/Creatinine Ratio 11.0 (10.0-20.0); Bilirubin, Total 0.4 mg/dL (0.2-1.0); Carbon Dioxide 24 mmol/L (20-31); Potassium 3.8 mmol/L (3.5-5.1); Sodium 141 mmol/L (136-145); Total Protein 6.6 g/dL (5.7-8.2)
[2025-08-27 06:57] LABS: Alkaline Phosphatase 36 U/L (46-116); Blood Urea Nitrogen 9 mg/dL (9-23); Calcium 8.7 mg/dL (8.7-10.4); Chloride 108 mmol/L (98-107); Ferritin 512.8 ng/mL (22-322); Glucose 110 mg/dL (74-106)
[2025-08-27] MEDS: CITALOPRAM HYDROBR 20 MG TAB PO SCH (09:21)
--- NOTE | 2025-08-27 10:10 | DVHPN2 ---
Reviewed: H&P Changes from previous H/P or p: No Changes General: Per HPI Objective Vitals Vital Signs Date Time Temp Pulse Resp B/P (MAP) Pulse Ox O2 Delivery O2 Flow Rate FiO2 08/27/25 09:21 156/82 08/27/25 08:00 Room Air* 0 21 08/27/25 06:18 59 17 08/27/25 05:00 97.9 96 97.9 Intake/Output Intake and Output 08/27/25 07:00 Intake Total 2571 ml Balance 2571 ml Intake Oral 1016 ml IV Total 975 ml Tube Feeding 580 ml # Voids 6 # Bowel Movements 4 Exam General: Alert, in mild discomfort. HEENT: Normal. Cardiac: Regular rhythm, no murmurs. Lungs: Clear bilaterally. Abdomen: Tenderness in epigastric region, right upper quadrant, and suprapubic area. No rebound or guarding. Bowel sounds hyper active Extremities: No edema. Neuro: Normal. Skin: Normal. Medications Current Medications Medications Dose Ordered Sig/Ashley Route Start Time Stop Time Status Last Admin Dose Admin Acetaminophen 650 mg Q6HP PRN PO 08/25/25 12:00 08/26/25 06:28 650 MG Acetaminophen/ Hydrocodone Bitart 1 tab Q4HP PRN PO 08/25/25 12:00 Pantoprazole Sodium 40 mg BID IV 08/25/25 22:00 08/27/25 09:20 40 MG Losartan Potassium 50 mg DAILY PO 08/25/25 18:15 08/27/25 09:21 50 MG Ceftriaxone Sodium 50 ml @ 100 mls/hr DAILY@09 IV 08/27/25 09:00 08/27/25 09:20 100 MLS/HR Morphine Sulfate 2 mg Q4HPRN PRN IV 08/26/25 10:30 08/27/25 05:48 2 MG Sodium Chloride 1,000 ml @ 75 mls/hr [id number] IV 08/26/25 15:45 08/27/25 05:33 75 MLS/HR Citalopram Hydrobromide 20 mg DAILY PO 08/27/25 10:00 08/27/25 09:21 20 MG Trazodone HCl 100 mg HS PO 08/26/25 22:00 08/26/25 21:22 100 MG Metronidazole 100 ml @ 100 mls/hr Q8HR IV 08/26/25 22:00 12/9/25 05:33 100 MLS/HR Patient Own Medication 1 DAILY PO 08/27/25 10:00 08/27/25 09:21 1 Laboratory Results Laboratory Tests 08/27/25 06:22 Chemistry Test 08/27/25 06:22 Albumin 3.9 g/dL (3.2-4.8) Calcium Level 8.7 mg/dL (8.7-10.4) Total Protein 6.6 g/dL (5.7-8.2) LFT Test 08/27/25 06:22 Alanine Aminotransferase (ALT) 16 U/L (7-40) Alkaline Phosphatase 36 U/L (46-116) L Aspartate Amino Transferase (AST) 18 U/L (13-40) Total Bilirubin 0.4 mg/dL (0.2-1.0) Urinalysis Test 08/25/25 12:49 Urine Color Yellow (Yellow) Urine Clarity Clear (Clear) Urine pH 6.5 (5.0-9.0) Urine Specific [place] > 1.050 (1.001-1.035) Urine Protein 1+ (Negative) H Urine Ketones 1+ (Negative) H Urine Blood Trace /uL (Negative) H Urine Nitrite Negative (Negative) Urine Bilirubin Negative (Negative) Urine Urobilinogen Normal mg/dL (Negative) Urine Leukocyte Esterase Negative /uL (Negative) Urine RBC 5 /hpf (0 - 3) Urine Microscopic WBC 3 /HPF (0-3) Urine Squamous Epithelial Cells None seen /hpf (<5) Urine Bacteria None seen /hpf (None Seen) Urine Glucose Normal mg/dL (Normal) Microbiology Microbiology Date/Time Source Procedure Growth Status 08/25/25 20:30 Stool Stool Culture - Preliminary Resulted 08/25/25 20:30 Stool Shiga Toxin I & II - Final Resulted 08/25/25 09:55 Blood Blood Culture - Preliminary NO GROWTH AFTER 48 HOURS OF INCUBATION. Resulted Labs and/or images reviewed: Labs reviewed by me, Image(s) reviewed by me Assessment/Plan Assessment/Plan Mr. Dg Romano is a 60-year-old male with a past medical history of hypertension (not on medications), hyperlipidemia, asthma, depression, and prior UTIs who presents with epigastric and lower abdominal pain. He describes the pain as cramping, radiating to the right lower quadrant and suprapubic area. He reports nausea and diarrhea. He denies vomiting, melena, hematochezia, fever, or chills. He notes mild generalized weakness. - In the ED, vitals showed BP 837837/59, afebrile, HR 6977, normal oxygenation. Labs show WBC 11.6, Hgb normal, CMP unremarkable, lipase 80, alkaline phosphatase 44. Troponins 79 - 64 - 63. A1C 5.4, lactate 1.2. UA: protein 1+, ketones 1+, trace blood. Toxicology positive for cannabinoids and opiates. CT abdomen/pelvis revealed diffuse colonic wall thickening with fat stranding consistent with pancolitis, plus mild intrahepatic biliary ductal dilatation. 08/26: ct has pancolitis, we have antibiotics onboard, patient not improving. MRCP no obstruction. We will remain on clear liquid diet, needs GI evaluation of per [place] colitis to rule out IBD. We will give1 time 40 Solu-Medrol to see if any improvement in pain. Of note, patient does take receptive anal intercourse, could be possible source for introduction of infection. Patient declines any blood in stools. Patient has history of upper endoscopy showing ulcers. We will continue Protonix IV 40 mg b.i.d., pending GI eval, continue IV antibiotics, stool culture pending. NSTEMI, echo, will keep tele. continue home depression medications. 08/27 will give another 500cc LR bolus, continue 75cchr thereafter. GI to evaluate. continue iv ctx/flagyl.. defer further iv steroids to gi. patient is improving ssx. still some high pitched BS. no ttp today. diagnosis: # Sepsis due to acute pancolitis # Elevated troponin, likely nstemi type 2 from dehydration # Mild intrahepatic biliary ductal dilatation # Hypertension # Hyperlipidemia # Asthma # Depression plan: IV ceftriaxone IV metronidazole Trial of steroids done IV fluids, boluses to replenish with acute large diarrheal episodes Continue home medications for depression anxiety GI consult, appreciate recommendations Continue other home medications tele Full code Plan discussed with: Patient My Orders Orders - ENOC GARCIA MD Procedure Category Date Status Time * Gi Dvh [employer] CONS 08/26/25 Transmitted 14:11 Sodium Chloride 0.9% PHA 08/26/25 In Process 15:45 Citalopram Tablet PHA 08/27/25 In Process (Celexa Tablet) 10:00 Trazodone Hcl PHA 08/26/25 In Process (Desyrel) 22:00 Patients Own PHA 08/27/25 In Process Medication 10:00 Date of Service: Aug 27, 2025 Billing Provider: ENOC GARCIA MD Common Visit Codes: [id number] INP/OBS CARE(HIGH) ENOC GARCIA MD Aug 27, 2025 10:10
[2025-08-27] MEDS: LACTATED RINGER'S 500 ML IV ONE (10:15)
--- NOTE | 2025-08-27 13:09 | DVHCONRES ---
Date Seen: Aug 27, 2025 Resident Creating Document: EUFEMIA WHEATLEY RESIDENT Referring Physician Dr. Simon History of Present Illness 60-year-old male who presented to the ER with a chief complaint of epigastric abdominal pain for the past 4 days along with diarrhea which is watery, nonbloody along with nausea but denies vomiting. Patient reports chills but denies fever. He says that his was recently sick with flu-like symptoms, following which he had some congestion and then he started experiencing abdominal pain and diarrhea. Denies melena or hematochezia. Patient had upper EGD 1 year ago which time showed inflammation. Never had colonoscopy in the past remote history of receptive anal intercourse and prostatitis. Denies recent travel history or that he had these symptoms in the past. Past medical history: Hypertension, dyslipidemia, depression, anxiety, prostatitis, possible gastritis Past surgical history: Back surgeries Social history: Smokes marijuana, remote history of receptive anal intercourse Patient seen and examined. Abdomen soft, normoactive, mildly tender at epigastrium. Family History: FH: lymphoma G8 FATHER, Onset:30s - 40 Allergies: Coded Allergies: NO KNOWN ALLERGIES (Unverified , 07/26/24) Home Meds Active Scripts Alum & Mag Hydrox-Simethicone (Maalox Multi Symptom Maxi) Symp Max Annika, 1 MAX PO PRN PRN for 30 Days, #100 ML Prov:LEXIE SEGURA RESIDENT 07/28/24 Ciprofloxacin Hcl (Ciprofloxacin Hcl) 500 Mg Tab, 1 TAB PO BID for 14 Days, #28 TAB Prov:LEXIE SEGURA RESIDENT 07/28/24 Reported Medications Bupropion Hcl (Bupropion Hcl Xl) 150 Mg Tab, 1 TAB PO DAILY 08/26/25 Citalopram Hydrobromide (Citalopram Hydrobromide) 20 Mg Tab, 1 TAB PO DAILY 08/26/25 Trazodone Hcl (Trazodone Hcl) 100 Mg Tab, 2 TAB PO QHSP PRN for FOR INSOMNIA 08/26/25 Tamsulosin Hcl (Tamsulosin Hcl) 0.4 Mg Cap, 1 PO DAILY 08/26/25 Citalopram Hydrobromide (Citalopram) 10 Mg Tab, 20 MG PO DAILY, TAB 08/26/25 Current Medications Current Medications Medications (Trade) Dose Ordered Sig/Ashley Route PRN Reason Start Time Stop Time Status Last Admin Ceftriaxone Sodium 50 ml @ 100 mls/hr DAILY@09 IV 08/27/25 09:00 08/27/25 09:20 Sodium Chloride 1,000 ml @ 75 mls/hr [id number] IV 08/26/25 15:45 08/27/25 05:33 Citalopram Hydrobromide (CeleXA TABLET) 20 mg DAILY PO 08/27/25 10:00 08/27/25 09:21 Bupropion HCl (Wellbutrin Tablet) 150 mg DAILY PO 08/27/25 10:00 08/26/25 16:17 DC Trazodone HCl (Desyrel) 100 mg HS PO 08/26/25 22:00 08/26/25 21:22 Metronidazole 100 ml @ 100 mls/hr Q8HR IV 08/26/25 22:00 08/27/25 05:33 Patient Own Medication 1 DAILY PO 08/27/25 10:00 08/27/25 09:21 Review of Systems Eyes: No Pain, No Vision change, No Conjunctivae inflammation, No Eyelid inflammation, No Other, No Redness ENT: No Ear pain, No Ear discharge, No Nose pain, No Nose discharge, No Nose congestion, No Mouth pain, No Mouth swelling, No Throat pain, No Throat swelling, No Other Cardiovascular: No Chest Pain, No Palpitations, No Orthopnea, No PND, No Edema, No Lt Headedness, No Other Respiratory: No Cough, No Dry, No Shortness of breath, No SOB with exertion, No Wheezing, No Hemoptysis, No Pleuritic Pain, No Sputum, No Other Gastrointestinal: Reports nausea, abdominal pain, diarrhea No Constipation, No Melena, No Hematochezia, No Other Genitourinary: No Dysuria, No Frequency, No Incontinence, No Hematuria, No Retention, No Other Musculoskeletal: No other, No neck pain, No shoulder pain, No arm pain, No back pain, No hand pain, No leg pain, No foot pain Skin: No Rash, No Lesions, No Jaundice, No Bruising, No Other Vital Signs Vital Signs Date Time Temp Pulse Resp B/P (MAP) Pulse Ox O2 Delivery O2 Flow Rate FiO2 08/27/25 09:21 156/82 08/27/25 09:00 97.3 49 17 96 97.3 08/27/25 08:00 Room Air* 0 21 Physical Exam Obese male patient lying in bed, in no acute distress General: Obese, afebrile, palor, mucosae are moist Cardiovascular: Regular S1 and S2. No murmurs, gallops or rubs. No JVD elevation. No pedal edema Respiratory: Normal B/L air entry on room air. Clear lung sounds on auscultation Abdomen: Soft, mildly tender, nondistended, normoactive bowel sounds, no rebound tenderness, no organomegaly, no masses Genitourinary: Deferred MSK/skin: Mobilizes 4 limbs. Skin is dry and warm Neurological: No motor, no sensitive deficits, normal speech. Pupils are isocoric and reactive. Psych/Mental Status: A/Ox3 Labs/Diagnostic Data Labs Test 08/27/25 06:22 08/26/25 17:44 08/26/25 06:32 08/26/25 05:37 Range/Units White Blood Count 8.6 4.4-10.8 10^3/uL Red Blood Count 4.87 4.5-5.90 10^6/uL Hemoglobin 15.9 13.5-17.5 g/dL Hematocrit 45.7 41.0-53.0 % Mean Corpuscular Volume 94.0 80.0-100.0 fL Mean Corpuscular Hemoglobin 32.6 H 28.0-32.0 pg Mean Corpuscular Hemoglobin Concent 34.7 32.0-36.0 g/dL Red Cell Distribution Width 13.6 11.8-14.3 % Platelet Count 213 140-450 10^3/uL Mean Platelet Volume 9.3 6.9-10.8 fL Neutrophils (%) (Auto) 65.6 37.0-80.0 % Lymphocytes (%) (Auto) 22.7 10.0-50.0 % Monocytes (%) (Auto) 11.5 0.0-12.0 % Eosinophils (%) (Auto) 0.1 0.0-7.0 % Basophils (%) (Auto) 0.1 0.0-2.0 % Neutrophils # (Auto) 5.6 1.6-8.6 10 ^3/uL Lymphocytes # (Auto) 2.0 0.4-5.4 10 ^3/uL Monocytes # (Auto) 1.0 0-1.3 10 ^3/uL Eosinophils # (Auto) 0 0-0.8 10 ^3/uL Basophils # (Auto) 0 0-0.2 10 ^3/uL Nucleated Red Blood Cells 0.1 % Erythrocyte Sedimentation Rate 11 0-20 mm/hr Sodium Level 141 136-145 mmol/L Potassium Level 3.8 3.5-5.1 mmol/L Chloride Level 108 H 98-107 mmol/L Carbon Dioxide Level 24 20-31 mmol/L Anion Gap 9 5-15 Blood Urea Nitrogen 9 9-23 mg/dL Creatinine 0.82 0.700-1.30 mg/dL Glomerular Filtration Rate Calc 99 >90 mL/min BUN/Creatinine Ratio 11.0 10.0-20.0 Serum Glucose 110 H 74-106 mg/dL Calcium Level 8.7 8.7-10.4 mg/dL Ferritin 512.8 H 22-322 ng/mL Total Bilirubin 0.4 0.2-1.0 mg/dL Aspartate Amino Transferase (AST) 18 13-40 U/L Alanine Aminotransferase (ALT) 16 7-40 U/L Alkaline Phosphatase 36 L 46-116 U/L C-Reactive Protein High Sensitivity 4.81 H <1.0 mg/dL Total Protein 6.6 5.7-8.2 g/dL Albumin 3.9 3.2-4.8 g/dL Vitamin B12 Level 919 H 211-911 pg/mL Vitamin D 25-Hydroxy 32.0 30.0-100 ng/mL Folic Acid 14.40 >5.38 ng/mL HIV (1&2) Antibody Negative Negative Thyroid Stimulating Hormone (TSH) 1.11 0.55-4.78 uIU/mL POC Glucose 104 70-106 mg/dl Test 08/25/25 20:30 08/25/25 12:49 08/25/25 09:49 08/25/25 06:55 Range/Units Stool Occult Blood Positive Negative Stool Occult Blood Sample #3 Negative Stool for White Cells Many Urine Color Yellow Yellow Urine Clarity Clear Clear Urine pH 6.5 5.0-9.0 Urine Specific [place] > 1.050 H 1.001-1.035 Urine Protein 1+ H Negative Urine Ketones 1+ H Negative Urine Blood Trace H Negative /uL Urine Nitrite Negative Negative Urine Bilirubin Negative Negative Urine Urobilinogen Normal Negative mg/dL Urine Leukocyte Esterase Negative Negative /uL Urine RBC 5 0 - 3 /hpf Urine Microscopic WBC 3 0-3 /HPF Urine Squamous Epithelial Cells None seen <5 /hpf Urine Bacteria None seen None Seen /hpf Urine Glucose Normal Normal mg/dL Urine Opiates Screen Pos NEGATIVE Urine Fentanyl Screen Neg NEGATIVE Urine Barbiturates Screen Neg NEGATIVE Urine Phencyclidine Screen Neg NEGATIVE Urine Amphetamines Screen Neg NEGATIVE Urine Benzodiazepines Screen Neg NEGATIVE Urine Cocaine Screen Neg NEGATIVE Urine Cannabinoids Screen Pos NEGATIVE Lactic Acid Level 1.2 0.4-2.0 mmol/L Troponin I High Sensitivity 63 *H </=54 ng/L Hemoglobin A1c 5.4 <5.7 % A1C Lipase 80 H 12-53 U/L Microbiology Date/Time Source Procedure Growth Status 08/25/25 20:30 Stool Stool Culture - Preliminary Resulted 08/25/25 20:30 Stool Shiga Toxin I & II - Final Resulted 08/25/25 09:55 Blood Blood Culture - Preliminary NO GROWTH AFTER 48 HOURS OF INCUBATION. Resulted Assessment Sepsis due to acute pancolitis Dehydration NSTEMI Uncontrolled Hypertension Dyslipidemia Anxiety Depression History of receptive anal intercourse Cannabis dependence Stool WBC positive Stool occult positive CT abdomen shows Diffuse thickening of the entire colon with surrounding fat stranding compatible with pancolitis. This may be infectious or inflammatory in etiology. MRCP negative Never had colonoscopy C diff, negative, stool culture prelim negative Plan: Recommendation: Dr. Melendez Patient's symptoms are related to pancolitis in the setting of viral/bacterial infection. Follow up with COVID and flu test. Recommend Medrol Dosepak. Follow up with GI as outpatient for screening colonoscopy. Continue pantoprazole 40 mg daily, Carafate b.i.d. Continue IV fluids, IV ceftriaxone and metronidazole Patient would benefit from screening colonoscopy HIV negative, hepatitis pending CRP 4.81 Clear liquid diet, advanced as tolerated Plan discussed with the patient in which all questions have been answered Case discussed with Dr. Melendez Plan discussed with: Patient EUFEMIA WHEATLEY RESIDENT Aug 27, 2025 13:09
[2025-08-27] MEDS: SUCRALFATE 1 GM/10 ML ORAL SUSP PO ONE (16:03)
[2025-08-27] MEDS: SUCRALFATE 1 GM/10 ML ORAL SUSP PO SCH (21:51)
[2025-08-28] VITALS (8 sets, daily range): BP systolic 129–166; BP diastolic 67–92; PULSE 50–63; RESP 18–19; TEMP 97.7–98.2; O2SAT 93–98
[2025-08-28 03:45] LABS: COVID19 ANTIGEN SOFIA FIA NEGATIVE (NEGATIVE)
[2025-08-28 07:49] LABS: Alanine Aminotransferase 25 U/L (7-40); Anion Gap 9 (5-15); BUN/Creatinine Ratio 8.2 (10.0-20.0); Carbon Dioxide 27 mmol/L (20-31); Glucose 81 mg/dL (74-106); Potassium 3.6 mmol/L (3.5-5.1); Sodium 143 mmol/L (136-145); Total Protein 6.4 g/dL (5.7-8.2)
[2025-08-28 07:50] LABS: Albumin 3.8 g/dL (3.2-4.8); Bilirubin, Total 0.5 mg/dL (0.2-1.0)
[2025-08-28 07:52] LABS: Alkaline Phosphatase 35 U/L (46-116); Blood Urea Nitrogen 8 mg/dL (9-23); Calcium 8.6 mg/dL (8.7-10.4); Chloride 107 mmol/L (98-107)
[2025-08-28 10:29] LABS: Hepatitis B Surface Antigen Negative (Negative)
[2025-08-28] MEDS: methylPREDNISolone SOD SUCC 40 MG/ML VL IV SCH (10:35)
[2025-08-28 10:56] LABS: Hepatitis C Antibody Negative (Negative)
--- NOTE | 2025-08-28 11:57 | DVHPN2 ---
Reviewed: H&P Changes from previous H/P or p: No Changes General: Per HPI Objective Vitals Vital Signs Date Time Temp Pulse Resp B/P (MAP) Pulse Ox O2 Delivery O2 Flow Rate FiO2 08/28/25 09:10 158/80 08/28/25 09:00 98.1 50 18 93 98.1 08/28/25 07:45 Room Air* 0 21 Intake/Output Intake and Output 08/28/25 07:00 Intake Total 4219 ml Balance 4219 ml Intake Oral 1872 ml IV Total 2347 ml # Voids 5 # Bowel Movements 2 Exam General: Alert, in mild discomfort. HEENT: Normal. Cardiac: Regular rhythm, no murmurs. Lungs: Clear bilaterally. Abdomen: Tenderness in epigastric region, right upper quadrant, and suprapubic area. No rebound or guarding. Bowel sounds hyper active Extremities: No edema. Neuro: Normal. Skin: Normal. Medications Current Medications Medications Dose Ordered Sig/Ashley Route Start Time Stop Time Status Last Admin Dose Admin Acetaminophen 650 mg Q6HP PRN PO 08/25/25 12:00 08/26/25 06:28 650 MG Acetaminophen/ Hydrocodone Bitart 1 tab Q4HP PRN PO 08/25/25 12:00 Pantoprazole Sodium 40 mg BID IV 08/25/25 22:00 08/28/25 09:10 40 MG Losartan Potassium 50 mg DAILY PO 08/25/25 18:15 08/28/25 09:10 50 MG Ceftriaxone Sodium 50 ml @ 100 mls/hr DAILY@09 IV 08/27/25 09:00 08/28/25 09:10 100 MLS/HR Morphine Sulfate 2 mg Q4HPRN PRN IV 08/26/25 10:30 08/28/25 02:50 2 MG Sodium Chloride 1,000 ml @ 75 mls/hr [id number] IV 08/26/25 15:45 08/28/25 06:05 75 MLS/HR Citalopram Hydrobromide 20 mg DAILY PO 08/27/25 10:00 08/28/25 09:09 20 MG Trazodone HCl 100 mg HS PO 08/26/25 22:00 08/27/25 21:51 100 MG Metronidazole 100 ml @ 100 mls/hr Q8HR IV 08/26/25 22:00 08/28/25 05:36 100 MLS/HR Patient Own Medication 1 DAILY PO 08/27/25 10:00 08/28/25 09:13 1 Sucralfate 1 gm BID@0600,2200 PO 08/27/25 22:00 08/28/25 05:36 1 GM Methylprednisolone Sodium Succinate 40 mg BID IV 08/28/25 10:00 08/28/25 10:35 40 MG Laboratory Results Laboratory Tests 08/27/25 06:22 08/28/25 06:32 Chemistry Test 08/28/25 06:32 Albumin 3.8 g/dL (3.2-4.8) Calcium Level 8.6 mg/dL (8.7-10.4) L Total Protein 6.4 g/dL (5.7-8.2) LFT Test 08/28/25 06:32 Alanine Aminotransferase (ALT) 25 U/L (7-40) Alkaline Phosphatase 35 U/L (46-116) L Aspartate Amino Transferase (AST) 28 U/L (13-40) Total Bilirubin 0.5 mg/dL (0.2-1.0) Urinalysis Test 08/25/25 12:49 Urine Color Yellow (Yellow) Urine Clarity Clear (Clear) Urine pH 6.5 (5.0-9.0) Urine Specific [place] > 1.050 (1.001-1.035) Urine Protein 1+ (Negative) H Urine Ketones 1+ (Negative) H Urine Blood Trace /uL (Negative) H Urine Nitrite Negative (Negative) Urine Bilirubin Negative (Negative) Urine Urobilinogen Normal mg/dL (Negative) Urine Leukocyte Esterase Negative /uL (Negative) Urine RBC 5 /hpf (0 - 3) Urine Microscopic WBC 3 /HPF (0-3) Urine Squamous Epithelial Cells None seen /hpf (<5) Urine Bacteria None seen /hpf (None Seen) Urine Glucose Normal mg/dL (Normal) Microbiology Microbiology Date/Time Source Procedure Growth Status 08/25/25 20:30 Stool Stool Culture - Preliminary Resulted 08/25/25 20:30 Stool Shiga Toxin I & II - Final Resulted 08/25/25 09:55 Blood Blood Culture - Preliminary NO GROWTH AFTER 72 HOURS OF INCUBATION. Resulted Labs and/or images reviewed: Labs reviewed by me, Image(s) reviewed by me Assessment/Plan Assessment/Plan Mr. Dg Romano is a 60-year-old male with a past medical history of hypertension (not on medications), hyperlipidemia, asthma, depression, and prior UTIs who presents with epigastric and lower abdominal pain. He describes the pain as cramping, radiating to the right lower quadrant and suprapubic area. He reports nausea and diarrhea. He denies vomiting, melena, hematochezia, fever, or chills. He notes mild generalized weakness. - In the ED, vitals showed BP 691973/59, afebrile, HR 6977, normal oxygenation. Labs show WBC 11.6, Hgb normal, CMP unremarkable, lipase 80, alkaline phosphatase 44. Troponins 79 - 64 - 63. A1C 5.4, lactate 1.2. UA: protein 1+, ketones 1+, trace blood. Toxicology positive for cannabinoids and opiates. CT abdomen/pelvis revealed diffuse colonic wall thickening with fat stranding consistent with pancolitis, plus mild intrahepatic biliary ductal dilatation. 08/26: ct has pancolitis, we have antibiotics onboard, patient not improving. MRCP no obstruction. We will remain on clear liquid diet, needs GI evaluation of per [place] colitis to rule out IBD. We will give1 time 40 Solu-Medrol to see if any improvement in pain. Of note, patient does take receptive anal intercourse, could be possible source for introduction of infection. Patient declines any blood in stools. Patient has history of upper endoscopy showing ulcers. We will continue Protonix IV 40 mg b.i.d., pending GI eval, continue IV antibiotics, stool culture pending. NSTEMI, echo, will keep tele. continue home depression medications. 08/27 will give another 500cc LR bolus, continue 75cchr thereafter. GI to evaluate. continue iv ctx/flagyl.. defer further iv steroids to gi. patient is improving ssx. still some high pitched BS. no ttp today. 08/28 - stilll abd pain. gi wants to do steroids and abx. will try more iv steroids today, if feels better possible dc in pm diagnosis: # Sepsis due to acute pancolitis # Elevated troponin, likely nstemi type 2 from dehydration # Mild intrahepatic biliary ductal dilatation # Hypertension # Hyperlipidemia # Asthma # Depression plan: IV ceftriaxone IV metronidazole Trial of steroids done IV fluids, boluses to replenish with acute large diarrheal episodes Continue home medications for depression anxiety GI consult, appreciate recommendations Continue other home medications tele Full code Plan discussed with: Patient My Orders Orders - ENOC GARCIA MD Procedure Category Date Status Time May Shower KRISTINA 08/27/25 In Process 18:58 Methylprednisolone PHA 08/28/25 In Process Sod Succ (Solu Medrol 10:00 Date of Service: Aug 28, 2025 Billing Provider: ENOC GARCIA MD Common Visit Codes: [id number] INP/OBS CARE(HIGH) ENOC GARCIA MD Aug 28, 2025 11:55
--- NOTE | 2025-08-28 17:23 | DVHPN2 ---
Progress Note Date Seen: Aug 28, 2025 Resident Creating Document: EUFEMIA WHEATLEY RESIDENT Medical Necessity Reason Pt with a Central, PICC or Fol: No Subjective Review of Systems 60-year-old male who presented to the ER with a chief complaint of epigastric abdominal pain for the past 4 days along with diarrhea which is watery, nonbloody along with nausea but denies vomiting. Patient reports chills but denies fever. He says that his was recently sick with flu-like symptoms, following which he had some congestion and then he started experiencing abdominal pain and diarrhea. Denies melena or hematochezia. Patient had upper EGD 1 year ago which time showed inflammation. Never had colonoscopy in the past remote history of receptive anal intercourse and prostatitis. Denies recent travel history or that he had these symptoms in the past. Past medical history: Hypertension, dyslipidemia, depression, anxiety, prostatitis, possible gastritis Past surgical history: Back surgeries Social history: Smokes marijuana, remote history of receptive anal intercourse 08/27 Patient seen and examined. Abdomen soft, normoactive, mildly tender at epigastrium. 08/28-patient seen and examined reports feeling better. Scheduled for EGD and colonoscopy 08/30 Objective vital signs Vital Sign Date Time Temp Pulse Resp B/P (MAP) Pulse Ox O2 Delivery O2 Flow Rate FiO2 08/28/25 17:04 97.9 57 18 150/88 (108) 96 97.9 08/28/25 07:45 Room Air* 0 21 Total Intake and Output 08/27/25 08/27/25 08/28/25 15:00 23:00 07:00 Intake Total 1397 ml 1172 ml 1650 ml Balance 1397 ml 1172 ml 1650 ml medications Current Medications Medications Dose Ordered Sig/Ashley Route Start Time Stop Time Status Last Admin Dose Admin Acetaminophen 650 mg Q6HP PRN PO 08/25/25 12:00 08/26/25 06:28 650 MG Acetaminophen/ Hydrocodone Bitart 1 tab Q4HP PRN PO 08/25/25 12:00 Pantoprazole Sodium 40 mg BID IV 08/25/25 22:00 08/28/25 09:10 40 MG Losartan Potassium 50 mg DAILY PO 08/25/25 18:15 08/28/25 09:10 50 MG Ceftriaxone Sodium 50 ml @ 100 mls/hr DAILY@ IV 08/27/25 09:00 08/28/25 09:10 100 MLS/HR Morphine Sulfate 2 mg Q4HPRN PRN IV 08/26/25 10:30 08/28/25 02:50 2 MG Sodium Chloride 1,000 ml @ 75 mls/hr [id number] IV 08/26/25 15:45 08/28/25 06:05 75 MLS/HR Citalopram Hydrobromide 20 mg DAILY PO 08/27/25 10:00 08/28/25 09:09 20 MG Trazodone HCl 100 mg HS PO 08/26/25 22:00 08/27/25 21:51 100 MG Metronidazole 100 ml @ 100 mls/hr Q8HR IV 08/26/25 22:00 08/28/25 14:06 100 MLS/HR Patient Own Medication 1 DAILY PO 08/27/25 10:00 08/28/25 09:13 1 Sucralfate 1 gm BID@0600,2200 PO 08/27/25 22:00 08/28/25 05:36 1 GM Methylprednisolone Sodium Succinate 40 mg BID IV 08/28/25 10:00 08/28/25 10:35 40 MG Examination Obese male patient lying in bed, in no acute distress General: Obese, afebrile, palor, mucosae are moist Cardiovascular: Regular S1 and S2. No murmurs, gallops or rubs. No JVD elevation. No pedal edema Respiratory: Normal B/L air entry on room air. Clear lung sounds on auscultation Abdomen: Soft, mildly tender, nondistended, normoactive bowel sounds, no rebound tenderness, no organomegaly, no masses Genitourinary: Deferred MSK/skin: Mobilizes 4 limbs. Skin is dry and warm Neurological: No motor, no sensitive deficits, normal speech. Pupils are isocoric and reactive. Psych/Mental Status: A/Ox3 laboratory and microbiology Laboratory Tests 08/28/25 06:32 08/27/25 06:22 Test 08/28/25 06:32 Range/Units Serum Glucose 81 74-106 mg/dL Microbiology Date/Time Source Procedure Growth Status 08/25/25 20:30 Stool Stool Culture - Preliminary Resulted 08/25/25 20:30 Stool Shiga Toxin I & II - Final Resulted 08/25/25 09:55 Blood Blood Culture - Preliminary NO GROWTH AFTER 72 HOURS OF INCUBATION. Resulted Labs and/or images reviewed: Labs reviewed by me, Image(s) reviewed by me Problem List/Assessment/Plan Problem List/Assessment/Plan Sepsis due to acute pancolitis Dehydration NSTEMI Uncontrolled Hypertension Dyslipidemia Anxiety Depression History of receptive anal intercourse Cannabis dependence Stool WBC positive Stool occult positive CT abdomen shows Diffuse thickening of the entire colon with surrounding fat stranding compatible with pancolitis. This may be infectious or inflammatory in etiology. MRCP negative Never had colonoscopy C diff, negative, stool culture prelim negative Plan: Recommendation: Dr. Melendez Patient's symptoms are related to pancolitis in the setting of viral/bacterial infection. Patient will be scheduled for upper and lower endoscopy 08/30. Continue full liquid diet for now. Bowel prep tomorrow. Hepatitis panel negative, COVID, flu negative, Anca negative. Stool WBC and stool occult positive. Continue pantoprazole 40 mg daily, Carafate b.i.d. Continue IV fluids, IV ceftriaxone and metronidazole Patient would benefit from screening colonoscopy HIV negative, hepatitis negative CRP 4.81 full liquid diet, advanced as tolerated Plan discussed with the patient in which all questions have been answered Case discussed with Dr. Melendez Plan discussed with: Patient EUFEMIA WHEATLEY RESIDENT Aug 28, 2025 17:23
[2025-08-29 01:00] VITALS: BP 144/73; PULSE 53; RESP 19; TEMP 97.8; O2SAT 94
[2025-08-29 05:00] VITALS: BP 157/77; PULSE 59; RESP 19; TEMP 98; O2SAT 92
[2025-08-29 09:00] VITALS: BP 150/70; PULSE 61; RESP 18; TEMP 98.1; O2SAT 96
[2025-08-29] MEDS ORDERED: GOLYTELY 4L KIT PO ONE (09:45)
--- NOTE | 2025-08-29 12:22 | DVHPN2 ---
Progress Note Date Seen: Aug 29, 2025 Resident Creating Document: EUFEMIA WHEATLEY RESIDENT Medical Necessity Reason Pt with a Central, PICC or Fol: No Subjective Review of Systems 60-year-old male who presented to the ER with a chief complaint of epigastric abdominal pain for the past 4 days along with diarrhea which is watery, nonbloody along with nausea but denies vomiting. Patient reports chills but denies fever. He says that his was recently sick with flu-like symptoms, following which he had some congestion and then he started experiencing abdominal pain and diarrhea. Denies melena or hematochezia. Patient had upper EGD 1 year ago which time showed inflammation. Never had colonoscopy in the past remote history of receptive anal intercourse and prostatitis. Denies recent travel history or that he had these symptoms in the past. Past medical history: Hypertension, dyslipidemia, depression, anxiety, prostatitis, possible gastritis Past surgical history: Back surgeries Social history: Smokes marijuana, remote history of receptive anal intercourse 08/27 Patient seen and examined. Abdomen soft, normoactive, mildly tender at epigastrium. 08/28-patient seen and examined reports feeling better. Scheduled for EGD and colonoscopy 08/30 08/29 - no febrile episodes, no diarrhea, abdomen soft nontender, tolerating full liquid diet, stool culture positive for Salmonella species. EGD and colonoscopy as outpatient. Objective vital signs Vital Sign Date Time Temp Pulse Resp B/P (MAP) Pulse Ox O2 Delivery O2 Flow Rate FiO2 08/29/25 09:20 148/92 08/29/25 09:00 98.1 61 18 96 98.1 08/28/25 20:00 Room Air* 0 21 Total Intake and Output 08/28/25 08/28/25 08/29/25 15:00 23:00 07:00 Intake Total 50 ml 2070 ml 1500 ml Balance 50 ml 2070 ml 1500 ml medications Current Medications Medications Dose Ordered Sig/Ashley Route Start Time Stop Time Status Last Admin Dose Admin Acetaminophen 650 mg Q6HP PRN PO 08/25/25 12:00 08/26/25 06:28 650 MG Acetaminophen/ Hydrocodone Bitart 1 tab Q4HP PRN PO 08/25/25 12:00 Pantoprazole Sodium 40 mg BID IV 08/25/25 22:00 08/29/25 09:15 40 MG Losartan Potassium 50 mg DAILY PO 08/25/25 18:15 08/29/25 09:20 50 MG Ceftriaxone Sodium 50 ml @ 100 mls/hr DAILY@09 IV 08/27/25 09:00 08/29/25 09:14 100 MLS/HR Morphine Sulfate 2 mg Q4HPRN PRN IV 08/26/25 10:30 08/28/25 02:50 2 MG Sodium Chloride 1,000 ml @ 75 mls/hr [id number] IV 08/26/25 15:45 08/28/25 06:05 75 MLS/HR Citalopram Hydrobromide 20 mg DAILY PO 08/27/25 10:00 08/29/25 09:21 20 MG Trazodone HCl 100 mg HS PO 08/26/25 22:00 08/28/25 21:30 100 MG Metronidazole 100 ml @ 100 mls/hr Q8HR IV 08/26/25 22:00 08/29/25 05:14 100 MLS/HR Patient Own Medication 1 DAILY PO 08/27/25 10:00 08/29/25 09:15 1 Sucralfate 1 gm BID@0600,2200 PO 08/27/25 22:00 08/29/25 05:13 1 GM Methylprednisolone Sodium Succinate 40 mg BID IV 08/28/25 10:00 08/29/25 09:15 40 MG Examination Obese male patient lying in bed, in no acute distress General: Obese, afebrile, palor, mucosae are moist Cardiovascular: Regular S1 and S2. No murmurs, gallops or rubs. No JVD elevation. No pedal edema Respiratory: Normal B/L air entry on room air. Clear lung sounds on auscultation Abdomen: Soft, mildly tender, nondistended, normoactive bowel sounds, no rebound tenderness, no organomegaly, no masses Genitourinary: Deferred MSK/skin: Mobilizes 4 limbs. Skin is dry and warm Neurological: No motor, no sensitive deficits, normal speech. Pupils are isocoric and reactive. Psych/Mental Status: A/Ox3 laboratory and microbiology Laboratory Tests 08/28/25 06:32 08/27/25 06:22 Test 08/28/25 06:32 Range/Units Serum Glucose 81 74-106 mg/dL Microbiology Date/Time Source Procedure Growth Status 08/25/25 20:30 Stool Stool Culture - Preliminary Salmonella species Resulted 08/25/25 20:30 Stool Shiga Toxin I & II - Final Resulted 08/25/25 09:55 Blood Blood Culture - Preliminary NO GROWTH AFTER 72 HOURS OF INCUBATION. Resulted Labs and/or images reviewed: Labs reviewed by me, Image(s) reviewed by me Problem List/Assessment/Plan Problem List/Assessment/Plan Sepsis due to acute pancolitis Dehydration NSTEMI Uncontrolled Hypertension Dyslipidemia Anxiety Depression History of receptive anal intercourse Cannabis dependence Stool WBC positive Stool occult positive CT abdomen shows Diffuse thickening of the entire colon with surrounding fat stranding compatible with pancolitis. This may be infectious or inflammatory in etiology. MRCP negative Never had colonoscopy C diff, negative, stool culture prelim negative Plan: Recommendation: Dr. Melendez Patient's symptoms are related to pancolitis in the setting of salmonella enteritis. Given that the patient is afebrile, hemodynamically stable, tolerating diet, no diarrhea, stable to be discharged. Patient will benefit from upper and lower endoscopy as outpatient. Follow up with GI services as outpatient Hepatitis panel negative, COVID, flu negative, Anca negative. Stool WBC and stool occult positive. Stool culture positive for Salmonella. Continue pantoprazole 40 mg daily, Carafate b.i.d. Continue IV fluids, IV ceftriaxone and metronidazole Patient would benefit from screening colonoscopy HIV negative, hepatitis negative CRP 4.81 full liquid diet, advanced as tolerated Plan discussed with the patient, nurse Cooley in which all questions have been answered Case discussed with Dr. Melendez Plan discussed with: Patient EUFEMIA WHEATLEY RESIDENT Aug 29, 2025 12:22
--- NOTE | 2025-08-29 12:35 | DVHPN2 ---
Reviewed: H&P Changes from previous H/P or p: No Changes General: Per HPI Objective Vitals Vital Signs Date Time Temp Pulse Resp B/P (MAP) Pulse Ox O2 Delivery O2 Flow Rate FiO2 08/29/25 09:20 148/92 08/29/25 09:00 98.1 61 18 96 98.1 08/28/25 20:00 Room Air* 0 21 Intake/Output Intake and Output 08/29/25 07:00 Intake Total 3620 ml Balance 3620 ml Intake Oral 2670 ml IV Total 950 ml # Voids 8 Exam General: Alert, in mild discomfort. HEENT: Normal. Cardiac: Regular rhythm, no murmurs. Lungs: Clear bilaterally. Abdomen: Tenderness in epigastric region, right upper quadrant, and suprapubic area. No rebound or guarding. Bowel sounds hyper active Extremities: No edema. Neuro: Normal. Skin: Normal. Medications Current Medications Medications Dose Ordered Sig/Ashley Route Start Time Stop Time Status Last Admin Dose Admin Acetaminophen 650 mg Q6HP PRN PO 08/25/25 12:00 08/26/25 06:28 650 MG Acetaminophen/ Hydrocodone Bitart 1 tab Q4HP PRN PO 08/25/25 12:00 Pantoprazole Sodium 40 mg BID IV 08/25/25 22:00 08/29/25 09:15 40 MG Losartan Potassium 50 mg DAILY PO 08/25/25 18:15 08/29/25 09:20 50 MG Ceftriaxone Sodium 50 ml @ 100 mls/hr DAILY@09 IV 08/27/25 09:00 08/29/25 09:14 100 MLS/HR Morphine Sulfate 2 mg Q4HPRN PRN IV 08/26/25 10:30 08/28/25 02:50 2 MG Sodium Chloride 1,000 ml @ 75 mls/hr [id number] IV 08/26/25 15:45 08/28/25 06:05 75 MLS/HR Citalopram Hydrobromide 20 mg DAILY PO 08/27/25 10:00 08/29/25 09:21 20 MG Trazodone HCl 100 mg HS PO 08/26/25 22:00 08/28/25 21:30 100 MG Metronidazole 100 ml @ 100 mls/hr Q8HR IV 08/26/25 22:00 08/29/25 05:14 100 MLS/HR Patient Own Medication 1 DAILY PO 08/27/25 10:00 08/29/25 09:15 1 Sucralfate 1 gm BID@0600,2200 PO 08/27/25 22:00 08/29/25 05:13 1 GM Methylprednisolone Sodium Succinate 40 mg BID IV 08/28/25 10:00 08/29/25 09:15 40 MG Laboratory Results Laboratory Tests 08/27/25 06:22 08/28/25 06:32 Urinalysis Test 08/25/25 12:49 Urine Color Yellow (Yellow) Urine Clarity Clear (Clear) Urine pH 6.5 (5.0-9.0) Urine Specific [place] > 1.050 (1.001-1.035) Urine Protein 1+ (Negative) H Urine Ketones 1+ (Negative) H Urine Blood Trace /uL (Negative) H Urine Nitrite Negative (Negative) Urine Bilirubin Negative (Negative) Urine Urobilinogen Normal mg/dL (Negative) Urine Leukocyte Esterase Negative /uL (Negative) Urine RBC 5 /hpf (0 - 3) Urine Microscopic WBC 3 /HPF (0-3) Urine Squamous Epithelial Cells None seen /hpf (<5) Urine Bacteria None seen /hpf (None Seen) Urine Glucose Normal mg/dL (Normal) Microbiology Microbiology Date/Time Source Procedure Growth Status 08/25/25 20:30 Stool Stool Culture - Preliminary Salmonella species Resulted 08/25/25 20:30 Stool Shiga Toxin I & II - Final Resulted 08/25/25 09:55 Blood Blood Culture - Preliminary NO GROWTH AFTER 72 HOURS OF INCUBATION. Resulted Labs and/or images reviewed: Labs reviewed by me, Image(s) reviewed by me Assessment/Plan Assessment/Plan Mr. Dg Romano is a 60-year-old male with a past medical history of hypertension (not on medications), hyperlipidemia, asthma, depression, and prior UTIs who presents with epigastric and lower abdominal pain. He describes the pain as cramping, radiating to the right lower quadrant and suprapubic area. He reports nausea and diarrhea. He denies vomiting, melena, hematochezia, fever, or chills. He notes mild generalized weakness. - In the ED, vitals showed BP 131993/59, afebrile, HR 6977, normal oxygenation. Labs show WBC 11.6, Hgb normal, CMP unremarkable, lipase 80, alkaline phosphatase 44. Troponins 79 - 64 - 63. A1C 5.4, lactate 1.2. UA: protein 1+, ketones 1+, trace blood. Toxicology positive for cannabinoids and opiates. CT abdomen/pelvis revealed diffuse colonic wall thickening with fat stranding consistent with pancolitis, plus mild intrahepatic biliary ductal dilatation. 08/26: ct has pancolitis, we have antibiotics onboard, patient not improving. MRCP no obstruction. We will remain on clear liquid diet, needs GI evaluation of per [place] colitis to rule out IBD. We will give1 time 40 Solu-Medrol to see if any improvement in pain. Of note, patient does take receptive anal intercourse, could be possible source for introduction of infection. Patient declines any blood in stools. Patient has history of upper endoscopy showing ulcers. We will continue Protonix IV 40 mg b.i.d., pending GI eval, continue IV antibiotics, stool culture pending. NSTEMI, echo, will keep tele. continue home depression medications. 08/27 will give another 500cc LR bolus, continue 75cchr thereafter. GI to evaluate. continue iv ctx/flagyl.. defer further iv steroids to gi. patient is improving ssx. still some high pitched BS. no ttp today. 08/28 - stilll abd pain. gi wants to do steroids and abx. will try more iv steroids today, if feels better possible dc in pm 12.11: gi plan for colon tomorrow. pt feeling better. will conitnue protonix, iv abx, iv solumedrol 40iv bid. diagnosis: # Sepsis due to acute pancolitis # Elevated troponin, likely nstemi type 2 from dehydration # Mild intrahepatic biliary ductal dilatation # Hypertension # Hyperlipidemia # Asthma # Depression plan: IV ceftriaxone IV metronidazole Trial of steroids done IV fluids, boluses to replenish with acute large diarrheal episodes Continue home medications for depression anxiety GI consult, appreciate recommendations Continue other home medications tele Full code Plan discussed with: Patient Date of Service: Aug 29, 2025 Billing Provider: ENOC GARCIA MD Common Visit Codes: [id number] INP/OBS CARE(HIGH) ENOC GARCIA MD Aug 29, 2025 12:35
[2025-08-29] MEDS ORDERED: LOSA-534 PO (12:49)
[2025-08-29] MEDS ORDERED: LEVO750T40 PO (12:49)
[2025-08-29] MEDS ORDERED: PANT40TA2 PO (12:50)
--- NOTE | 2025-08-29 12:51 | DVHDS2 ---
Discharge Summary Date of Admission Aug 25, 2025 at 11:58 Date of Discharge: Aug 29, 2025 Labs/Diagnostic Data: Laboratory Results Test 08/28/25 06:32 08/28/25 03:00 08/27/25 06:22 08/26/25 17:44 Sodium Level 143 mmol/L (136-145) Potassium Level 3.6 mmol/L (3.5-5.1) Chloride Level 107 mmol/L (98-107) Carbon Dioxide Level 27 mmol/L (20-31) Anion Gap 9 (5-15) Blood Urea Nitrogen 8 mg/dL (9-23) Creatinine 0.97 mg/dL (0.700-1.30) Glomerular Filtration Rate Calc 88 mL/min (>90) BUN/Creatinine Ratio 8.2 (10.0-20.0) Serum Glucose 81 mg/dL (74-106) Calcium Level 8.6 mg/dL (8.7-10.4) Total Bilirubin 0.5 mg/dL (0.2-1.0) Aspartate Amino Transferase (AST) 28 U/L (13-40) Alanine Aminotransferase (ALT) 25 U/L (7-40) Alkaline Phosphatase 35 U/L (46-116) Total Protein 6.4 g/dL (5.7-8.2) Albumin 3.8 g/dL (3.2-4.8) Influenza Type A Antigen Negative (Negative) Influenza Type B Antigen Negative (Negative) SARS-CoV-2 Antigen (Rapid) Negative (NEGATIVE) White Blood Count 8.6 10^3/uL (4.4-10.8) Red Blood Count 4.87 10^6/uL (4.5-5.90) Hemoglobin 15.9 g/dL (13.5-17.5) Hematocrit 45.7 % (41.0-53.0) Mean Corpuscular Volume 94.0 fL (80.0-100.0) Mean Corpuscular Hemoglobin 32.6 pg (28.0-32.0) Mean Corpuscular Hemoglobin Concent 34.7 g/dL (32.0-36.0) Red Cell Distribution Width 13.6 % (11.8-14.3) Platelet Count 213 10^3/uL (140-450) Mean Platelet Volume 9.3 fL (6.9-10.8) Neutrophils (%) (Auto) 65.6 % (37.0-80.0) Lymphocytes (%) (Auto) 22.7 % (10.0-50.0) Monocytes (%) (Auto) 11.5 % (0.0-12.0) Eosinophils (%) (Auto) 0.1 % (0.0-7.0) Basophils (%) (Auto) 0.1 % (0.0-2.0) Neutrophils # (Auto) 5.6 10 ^3/uL (1.6-8.6) Lymphocytes # (Auto) 2.0 10 ^3/uL (0.4-5.4) Monocytes # (Auto) 1.0 10 ^3/uL (0-1.3) Eosinophils # (Auto) 0 10 ^3/uL (0-0.8) Basophils # (Auto) 0 10 ^3/uL (0-0.2) Nucleated Red Blood Cells 0.1 % Erythrocyte Sedimentation Rate 11 mm/hr (0-20) Ferritin 512.8 ng/mL (22-322) C-Reactive Protein High Sensitivity 4.81 mg/dL (<1.0) Vitamin B12 Level 919 pg/mL (211-911) Vitamin D 25-Hydroxy 32.0 ng/mL (30.0-100) Folic Acid 14.40 ng/mL (>5.38) HIV (1&2) Antibody Negative (Negative) Cytoplasmic ANCA (c-ANCA) Antibody <1:20 titer (Neg:<1:20) Atypical p-ANCA <1:20 titer (Neg:<1:20) Perinuclear ANCA (p-ANCA) Antibody <1:20 titer (Neg:<1:20) Test 08/26/25 06:32 08/26/25 05:37 08/25/25 20:30 08/25/25 12:49 Thyroid Stimulating Hormone (TSH) 1.11 uIU/mL (0.55-4.78) Hepatitis B Surface Antigen Negative (Negative) Hepatitis B Surface Antibody Negative (Negative) Hepatitis C Antibody Negative (Negative) POC Glucose 104 mg/dl (70-106) Stool Occult Blood Positive (Negative) Stool Occult Blood Sample #3 (Negative) Stool for White Cells Many Urine Color Yellow (Yellow) Urine Clarity Clear (Clear) Urine pH 6.5 (5.0-9.0) Urine Specific [place] > 1.050 (1.001-1.035) Urine Protein 1+ (Negative) Urine Ketones 1+ (Negative) Urine Blood Trace /uL (Negative) Urine Nitrite Negative (Negative) Urine Bilirubin Negative (Negative) Urine Urobilinogen Normal mg/dL (Negative) Urine Leukocyte Esterase Negative /uL (Negative) Urine RBC 5 /hpf (0 - 3) Urine Microscopic WBC 3 /HPF (0-3) Urine Squamous Epithelial Cells None seen /hpf (<5) Urine Bacteria None seen /hpf (None Seen) Urine Glucose Normal mg/dL (Normal) Urine Opiates Screen Pos (NEGATIVE) Urine Fentanyl Screen Neg (NEGATIVE) Urine Barbiturates Screen Neg (NEGATIVE) Urine Phencyclidine Screen Neg (NEGATIVE) Urine Amphetamines Screen Neg (NEGATIVE) Urine Benzodiazepines Screen Neg (NEGATIVE) Urine Cocaine Screen Neg (NEGATIVE) Urine Cannabinoids Screen Pos (NEGATIVE) Test 08/25/25 09:49 08/25/25 06:55 Lactic Acid Level 1.2 mmol/L (0.4-2.0) Troponin I High Sensitivity 63 ng/L (</=54) Hemoglobin A1c 5.4 % A1C (<5.7) Lipase 80 U/L (12-53) Other Laboratory Tests 08/28/25 06:32 08/27/25 06:22 Brief Hx & Hospital Course: patient with salmonella pancolitis. not safe for endoscopy. gi plan for outpatient. stabel for dc per gi. will dc today with abx and probiotics. no need steroids. Mr. Dg Romano is a 60-year-old male with a past medical history of hypertension (not on medications), hyperlipidemia, asthma, depression, and prior UTIs who presents with epigastric and lower abdominal pain. He describes the pain as cramping, radiating to the right lower quadrant and suprapubic area. He reports nausea and diarrhea. He denies vomiting, melena, hematochezia, fever, or chills. He notes mild generalized weakness. - In the ED, vitals showed BP 720755/59, afebrile, HR 6977, normal oxygenation. Labs show WBC 11.6, Hgb normal, CMP unremarkable, lipase 80, alkaline phosphatase 44. Troponins 79 - 64 - 63. A1C 5.4, lactate 1.2. UA: protein 1+, ketones 1+, trace blood. Toxicology positive for cannabinoids and opiates. CT abdomen/pelvis revealed diffuse colonic wall thickening with fat stranding consistent with pancolitis, plus mild intrahepatic biliary ductal dilatation. 08/26: ct has pancolitis, we have antibiotics onboard, patient not improving. MRCP no obstruction. We will remain on clear liquid diet, needs GI evaluation of per [place] colitis to rule out IBD. We will give1 time 40 Solu-Medrol to see if any improvement in pain. Of note, patient does take receptive anal intercourse, could be possible source for introduction of infection. Patient declines any blood in stools. Patient has history of upper endoscopy showing ulcers. We will continue Protonix IV 40 mg b.i.d., pending GI eval, continue IV antibiotics, stool culture pending. NSTEMI, echo, will keep tele. continue home depression medications. 08/27 will give another 500cc LR bolus, continue 75cchr thereafter. GI to evaluate. continue iv ctx/flagyl.. defer further iv steroids to gi. patient is improving ssx. still some high pitched BS. no ttp today. 08/28 - stilll abd pain. gi wants to do steroids and abx. will try more iv steroids today, if feels better possible dc in pm/ 08/29 - stool cx with salmonella. diagnosis: # Sepsis due to acute pancolitis, due to salmonella infection # Elevated troponin, likely nstemi type 2 from dehydration # Mild intrahepatic biliary ductal dilatation # Hypertension # Hyperlipidemia # Asthma # Depression plan: - Levaquin 500 mg p.o. b.i.d. for 5 days - losartan 50mg daily - protonix 40mg daily , 1 month. -Take probiotic [id number] daily for 1 month - follow up with PCP to review discharge. -follow up with GI for outpatient endoscopy and colonoscopy -continue other home medications Condition at Discharge: Fair Final Diagnosis/Problems List # Sepsis due to acute pancolitis, due to salmonella infection # Elevated troponin, likely nstemi type 2 from dehydration # Mild intrahepatic biliary ductal dilatation # Hypertension # Hyperlipidemia # Asthma # Depression Discharge Disposition: Home Discharge Instruct/Medications Scheduled Bupropion Hcl (Bupropion Hcl Xl), 1 TAB PO DAILY, (Reported) Ciprofloxacin Hcl (Ciprofloxacin Hcl), 1 TAB PO BID Citalopram Hydrobromide (Citalopram), 20 MG PO DAILY, (Reported) Citalopram Hydrobromide (Citalopram Hydrobromide), 1 TAB PO DAILY, (Reported) Tamsulosin Hcl (Tamsulosin Hcl), 1 PO DAILY, (Reported) Scheduled PRN Alum & Mag Hydrox-Simethicone (Maalox Multi Symptom Maxi), 1 MAX PO PRN PRN Trazodone Hcl (Trazodone Hcl), 2 TAB PO QHSP PRN for FOR INSOMNIA, (Reported) Discharge Statement: "Patient was advised to return to the ER or call 911 if any headaches, dizziness, shortness of breath, chest pain, abdominal pain, bleeding, fevers, or worsening of medical condition. Patient was counseled about treatment plan, medications, possible side effects, patientverbalized understanding. All questions were answered to the best of my ability. This discharge took greater then 30 minutes in planning, reviewing documentation, counseling the patient, and discussing with other team members." ASSESSMENT ASSESSMENT Assessment Date of Service: Aug 29, 2025 Billing Provider: ENOC GARCIA MD Common Visit Codes: [id number] DISCH DAY >30min ENOC GARCIA MD Aug 29, 2025 12:51
[2025-08-29 13:00] VITALS: BP 153/88; PULSE 68; RESP 16; TEMP 97.7; O2SAT 95
[2025-08-29 14:46] VITALS: BP 148/92; PULSE 61; RESP 18; TEMP 98.1; O2SAT 96
[2025-08-30] MEDS ORDERED: GOLYTELY 4L KIT PO ONE (06:00)
[2025-08-30] MEDS ORDERED: MAGNESIUM CITRATE SOLUTION 300 ML BTL PO ONE (06:00)
== END 2025-08-29 16:05 | disposition home or self-care (01) | DRG 871 ==
LOC: ER 06:32 → OVERFLOW 11:58 → ER 12:02 → WEST WING 17:45
PROVIDERS: ADMIT Student in an Organized Health Care Education/Training Program; ATTEND Student in an Organized Health Care Education/Training Program
DX: A02.1 Salmonella sepsis (principal); I21.A1 Myocardial infarction type 2; J45.909 Unspecified asthma, uncomplicated; F32.A Depression, unspecified; I10 Essential (primary) hypertension; F12.20 Cannabis dependence, uncomplicated; Z20.822 Contact with and (suspected) exposure to COVID-19; E86.0 Dehydration; K83.8 Other specified diseases of biliary tract; K52.9 Noninfective gastroenteritis and colitis, unspecified; E78.5 Hyperlipidemia, unspecified; F41.9 Anxiety disorder, unspecified; Z79.899 Other long term (current) drug therapy
CPT/HCPCS: 36415; 71045; 74177; 74181; 80053; 80307; 81001; 82270; 82306; 82607; 82728; 82746; 82962; 83036; 83520; 83605; 83690; 84443; 84484; 85025; 85048; 85652; 86141; 86256; 86703; 86706; 86803; 87040; 87045; 87077; 87186; 87340; 87426; 87427; 87493; 87804; 93005; 93306; 96361; 96365; 96367; 96368; 96375; G0378; J2405; J2470; J3490